=== PATIENT | male | born 1955 | race Caucasian/White ===

== ENCOUNTER → 2018-06-17 07:38 | Outpatient (CLI) | payer MEDICARE, SELFPAY ==
[2018-06-17 10:55] LABS: AST(SGOT) 25 U/L (15-37); Alanine Aminotransfer ALT/SGPT 35 U/L (16-61); Albumin, Serum 3.7 g/dL (3.2-5.0); Alkaline Phosphatase 79 U/L (45-117); Bilirubin, Direct 0.12 mg/dL (0.00-0.30); Cholesterol 150 mg/dL (200); Globulin 3.1 g/dL (2.2-4.2); High Density Lipoprotein 46 mg/dL; Protein, Total 6.8 g/dL (6.4-8.2); Triglycerides 123 mg/dL; Very Low Density Lipoprotein 25 mg/dL (5-40)
== END ==
PROVIDERS: Family Provider Family Medicine; PCP Family Medicine; Visit Provider Internal Medicine Cardiovascular Disease
DX: I25.10 Atherosclerotic heart disease of native coronary artery without angina pectoris (principal); E78.00 Pure hypercholesterolemia, unspecified
CPT/HCPCS: 36415; 80061; 80076

== ENCOUNTER → 2018-08-30 17:20 | Outpatient (CLI) | payer MEDICARE, SELFPAY ==
--- NOTE | 2018-08-30 | FLU_PTH ---
PATIENT: CECELIA BENZ LOC: [facility] U#:[id number] AGE/SX: 70/M ROOM: RE08/30/[address]: Dr. Ze Saab MD : 1955 BED: DIS: SPEC #: [id number] RECD: 08/30/18 15:00 STATUS: NOE BERNABE #: [id number] LETA: 08/30/18 00:[address]: Ze Saab DEPT: CYTOLOGY RECD BY: Ashley Hinkle ENTERED: 08/31/18 08:39 SP TYPE: Fluid OTHR DR: Dr. Talib Ferrara, DO Tissues: Urine Procedures: Pap Stain (control) Special Stain Group II Cytospin Fluid HEADER OPERATION: Not noted PRE-OP DIAGNOSIS: Bladder cancer TISSUE SUBMITTED: Urine for cytology DIAGNOSIS CYTOLOGY Urine for cytology (cytospin): Negative for malignant cells. HOWARD:marsha 09/01/18 COMMENT Please make reference to previous specimen ([id number]) bladder tumor, TUR with diagnosis of focally invasive urothelial carcinoma, ([id number]) urinary bladder tumor, TUR with diagnosis of mild reactive urothelial change, ([id number]) urine for cytology with diagnosis of a few atypical urothelial cells noted in the background of acute inflammation and bloody specimen, and ([id number]) urine for cytology with diagnosis of rare atypical urothelial cells present. CYTOLOGY STUDY Slides are reviewed. CYTOLOGY GROSS Received is 40 ml of slightly cloudy dark catie fluid labeled with the patient's name and and designated per the requisition as urine. Submitted for cytology preparation. /LONNIE:lencho 08/31/18 TC:5 CPT: 74598
[2018-08-30 17:39] LABS: Cytology, Body Fluid / CSF SEE PATHOLOGY REPORT
== END ==
PROVIDERS: Family Provider Family Medicine; PCP Family Medicine; Referring Provider Urology; Visit Provider Urology
DX: C67.9 Malignant neoplasm of bladder, unspecified (principal)
CPT/HCPCS: 88108; 88305; 88313

== ENCOUNTER 2018-10-27 09:00 | Outpatient (RCR) | payer MEDICARE, SELFPAY ==
--- NOTE | 2018-09-28 13:44 | HP.OTEVAL_ITS ---
Patient's Visit Information CECELIA BENZ is a 63 year old M, referred to Occupational Therapy by Davis Kinney MD, with a diagnosis of Trigger Finger, L hand. Date of Evaluation: 09/28/18 Occupational Therapist: Isabella Parr, AKUA/Annie, CHT - Subjective Subjective: pt. arrives after trigger finger release that occured 3 wks ago this coming Wednesday. Pt. reports that he had the splint on for 1 wk. to help with the healing of the finger to limit opening and closing of hand. Pt. reports that this is the 5th trigger finger (some of the trigger fingers occured on the R hand). - Pain L hand 0 Pain Intensity Range: 0, 1, 2, 3, 4, 5, 6, 7, 8, 9 - Objective Objective/Observation: patient has a wound on the volar surface of the hand, 3rd digit on L hand is swollen - ROM MP: L 2 0/74, 3 0/70, 4 0/73, 5 0/90 PIP: L 0/100, 0/98, 0/100, 0/105 DIP: L 0/80, 0/75,0/79, 0/95 ROM Comments: R hand. MP 5 0/80, 4 0/70, 3 0/75, 2 0/65. PIP 0/100, 0/95, 0/100, 0/100. 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 by completing strengthening exercises and stretches in order to complete BADL?s and IADL?s. Patient will improve lateral and tripod grasps by 5 lbs. by completing strengthening and stretching exercises in order to complete BADL?s and IADL?s. Goal:: Patient will increased ROM in L hand and demo full composite fist by completing strengthening and stretching exercises in order to complete BADL?s and IADL?s. Goal:: Patient will have decreased swelling and report overall decrease in pain of <5 following repetive movement activities in order to complete BADL?s and IADL?s. Goal:: patient will demo decrease in scar tissue following implementation of scar management techniques in order to increase I with BADL's and IADL's and demo full composite fist. Goal:: Patient will demo understanding of joint protection and ECM recommendations for increase I with BADL?s and IADL?s. Goal:: Patient will report understanding of wound care protocols for increased healing of L hand. - Rehabilitation General Assessment: Patient presents after having trigger finger release sx on L hand. Pt. to be treated for digits 2,3, and 4 post sx. Patient also presents with healing wound on the volar aspect of the hand. Patient demonstrating decre ased strength, ROM, increased pain, scar tissue, and decreased ability to complete BADL's and IADL's. Patient will benefit from therapy 2x/wk for 4 wks. Rehabilitation Potential: Good - Anticipated Interventions Anticipated Interventions: A/AAROM/PROM, Strengthening, Triggerpoint Release, Modalities, Joint Protection/Energy Conservation, Ergonomic Education, ADL Training, Home Program - Visit Plan Frequency: 2x /Week Duration: 4 Weeks TEXT: Thank you for the opportunity to evaluate your patient. For Medicare and Medicare HMO plans, please review the plan of care and approve it. It will need to be FAXED BACK to us at [phone] for Medicare purposes. Please let me know if there are questions or concerns regarding this plan of care. Physician Signature: Date:
--- NOTE | 2018-10-27 15:01 | HP.OTDCSUM_ITS ---
HP - OT D/C Summary It has been my pleasure to treat CECELIA BENZ under orders from Davis Kinney MD, for the diagnosis of Trigger Finger, L hand for a total of 8 visit(s). Please see the following information for a summary of their discharge status. - Objective Objective/Function: ROM. MP 0/81. PIP 0/90. 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 by completing strengthening exercises and stretches in order to complete BADL?s and IADL?s. Patient will improve lateral and tripod grasps by 5 lbs. by completing strengthening and stretching exercises in order to complete BADL?s and IADL?s. Goal:: Patient will increased ROM in L hand and demo full composite fist by completing strengthening and stretching exercises in order to complete BADL?s and IADL?s. Goal:: Patient will have decreased swelling and report overall decrease in pain of <5 following repetive movement activities in order to complete BADL?s and IADL?s. Goal:: patient will demo decrease in scar tissue following implementation of scar management techniques in order to increase I with BADL's and IADL's and demo full composite fist. Goal:: Patient will demo understanding of joint protection and ECM recommendations for increase I with BADL?s and IADL?s. Goal:: Patient will report understanding of wound care protocols for increased healing of L hand. - Plan Plan: cont POC - D/C Information Discharge Comments: patient made progress with ROM, strength, decreased pain and scar tissue, and increased I with BADL's and IADL's. OT noted that pt. wound healed. pt. reports no further concerns at this time. pt. d/c with a HEP. If there are questions or concerns regarding this patient's occupational therapy, please fell free to call me at [phone]. Thank you for the refe rral of this patient. Sincerely, Isabella Parr, OTR/L, CHT
== END 2018-10-27 19:00 | disposition home or self-care (01) ==
LOC: OT 09:00
PROVIDERS: Family Provider Family Medicine; PCP Family Medicine; Referring Provider Specialist; Visit Provider Specialist
DX: M65.332 Trigger finger, left middle finger (principal)
CPT/HCPCS: 97035; 97110; 97140; 97166; 97530; 97760; G8987; G8988

== ENCOUNTER → 2018-12-08 09:19 | Outpatient (CLI) | payer MEDICARE, SELFPAY ==
[2018-12-08 12:16] LABS: Absolute Lymphocyte Count 1.03 X10^3/ul (0.83-4.51); Absolute Neutrophil Count 3.7 X10^3/uL (2.0-7.7); Basophil# 0.02 X10^3/uL; Basophil% 0.4 % (0-1); Eosinophils% 3.8 % (0-5); Hematocrit 43.6 % (40-54); Hemoglobin 14.8 g/dl (13.0-16.5); Lymphocyte # 1.03 X10^3/ul (4.0); Lymphocyte % 19.5 % (19-41); Mean Corp Hgb Conc 33.9 g/gl (32-36); Mean Corpuscular Hgb 30.3 pg (27.0-32.0); Mean Corpuscular Volume 89.3 fL (80-94); Mean Platelet Vol. 9.3 fl (6.2-12.0); Monocyte# 0.32 X10^3/uL; Monocyte% 6.1 % (0-10); Neutrophil # 3.69 X10^3/uL (2.7-7.7); Neutrophil % 69.8 % (47-70); POSITIVE COUNT NO; POSITIVE DIFFERENTIAL NO; POSITIVE MORPHOLOGY NO; Platelet Count 152 K/mm3 (150-450); RBC Distribution Width CV 13.3 % (11.6-14.6); RBC Distribution Width SD 42.8 fl (35.1-43.9); Red Blood Count 4.88 M/mm3 (4.6-6.2); White Blood Count 5.3 K/mm3 (4.4-11.0)
[2018-12-08 12:29] LABS: Microalbumin,Random Urine 11.1 mg/L (NO RANGE EST.); Microalbumin:Creatinine Ratio 12.6 mg/g CRE (<30 mg/g CRE)
[2018-12-08 12:42] LABS: Anion Gap 7 (5-15); BUN 20 mg/dL (7-18); BUN/Creat Ratio 14.4 RATIO (10-20); Calcium,Total 8.9 mg/dL (8.5-10.1); Chloride 102 mmol/L (98-107); Creatinine, Serum 1.39 mg/dL (0.70-1.30); EST Glomerular Filtration Rate 54 mL/min (>60); Est Glom Filt Rate - Afr Amer 66 mL/min (>60); Glucose 360 mg/dL (74-106); Potassium 4.7 mmol/L (3.5-5.1); Sodium Level 134 mmol/L (136-145)
== END ==
PROVIDERS: Family Provider Family Medicine; PCP Family Medicine; Visit Provider Family Medicine
DX: E11.29 Type 2 diabetes mellitus with other diabetic kidney complication (principal); R80.9 Proteinuria, unspecified; I25.10 Atherosclerotic heart disease of native coronary artery without angina pectoris; I10 Essential (primary) hypertension
CPT/HCPCS: 36415; 80048; 82043; 82570; 83036; 85025

== ENCOUNTER → 2019-01-06 08:03 | Outpatient (CLI) | payer MEDICARE, SELFPAY ==
[2018-12-29 09:43] VITALS: BMI 31.7
[2019-01-06 10:52] LABS: AST(SGOT) 34 U/L (15-37); Alanine Aminotransfer ALT/SGPT 43 U/L (16-61); Albumin, Serum 3.9 g/dL (3.2-5.0); Alkaline Phosphatase 90 U/L (45-117); Bilirubin, Direct 0.18 mg/dL (0.00-0.30); Cholesterol 175 mg/dL (200); Globulin 3.1 g/dL (2.2-4.2); High Density Lipoprotein 43 mg/dL; Triglycerides 183 mg/dL; Very Low Density Lipoprotein 37 mg/dL (5-40)
== END ==
PROVIDERS: Family Provider Family Medicine; PCP Family Medicine; Referring Provider Internal Medicine Cardiovascular Disease; Visit Provider Internal Medicine Cardiovascular Disease
DX: I25.10 Atherosclerotic heart disease of native coronary artery without angina pectoris (principal); E78.00 Pure hypercholesterolemia, unspecified
CPT/HCPCS: 36415; 80061; 80076

== ENCOUNTER → 2019-04-10 08:00 | Outpatient (CLI) | payer MEDICARE, SELFPAY ==
[2018-12-29 09:43] VITALS: BMI 31.7
--- NOTE | 2019-04-10 08:00 | BLA_PTH ---
PATIENT: CECELIA BENZ LOC: [facility] U#:[id number] AGE/SX: 70/M ROOM: RE04/10/[address]: Dr. Ze Saab MD : 1955 BED: DIS: SPEC #: [id number] RECD: 04/10/19 16:54 STATUS: NOE BERNABE #: [id number] LETA: 04/10/19 08:[address]: Ze Saab DEPT: SURGICAL PATHOLOGY RECD BY: Mike Toledo ENTERED: 04/11/19 08:41 SP TYPE: BLADDER BX OTHR DR: Dr. Talib Ferrara DO Tissues: Urinary bladder, NOS Procedures: Special Stain Group I Surgery Specimen Level IV GMS Stain (control) HEADER OPERATION: Bladder biopsy PRE-OP DIAGNOSIS: Hematuria, bladder lesion TISSUE SUBMITTED: Bladder biopsy MICROSCOPIC DIAGNOSIS Urinary bladder, biopsy: Fibrous tissue with associated polarizable crystalline debris, acute and chronic inflammation and associated benign histiocytic reaction. No evidence of malignancy. See comment. AM:marsha 04/12/19 COMMENT GMS stain with matched control is negative for fungal organisms. MICROSCOPIC DESCRIPTION Slides are reviewed. GROSS DESCRIPTION Received in fixative is one container labeled with the patient's name and designated bladder biopsy. The specimen consists of two irregular fragments of light lynn soft tissue that in aggregate measure 0.2 x 0.1 x 0.1 cm. The specimen is totally submitted in one cassette. / SJ:marsha 04/11/19 TC:2 CPT: 98019, 60235
== END ==
PROVIDERS: Family Provider Family Medicine; PCP Family Medicine; Referring Provider Urology; Visit Provider Urology
DX: R31.9 Hematuria, unspecified (principal); N32.9 Bladder disorder, unspecified
CPT/HCPCS: 88305; 88312

== ENCOUNTER 2019-04-26 09:34 | Emergency (ER) | payer MEDICARE, SELFPAY ==
[2018-12-29 09:43] VITALS: BMI 31.7
[2019-04-26 09:35] VITALS: BP 147/77; PULSE 73; RESP 16; TEMP 36.4; O2SAT 96; BMI 30.9
--- NOTE | 2019-04-26 09:47 | ED.VISSUMM ---
- ER Visit Summary Date of Service: 04/26/19 Chief Complaint: Left hand laceration History of Present Illness: The patient is a 64 M who presents with a laceration to his left hand that occurred today. Patient states he slipped in the shower and attempted to grab the handle of the shower door. Patient cut his hand on the shower door handle. Patient denies any pain. Patient denies any paresthesias or weakness. Patient states his last tetanus was within 5 years. Patient denies any other injuries. Patient denies any head injury or loss of consciousness. Physical Examination: Vital signs are stable. Patient is afebrile. Patient is in no acute distress. Skin is warm and dry. There is a 3 cm curvilinear laceration over the palmar aspect of the proximal phalanx of the left fifth finger and over the fifth MCP joint area. There is moderate gapping of the wound margins. There are no foreign bodies noted. There are no tendon lacerations visualized. Strength is 5/5 in flexion of the MP, PIP, and DIP joints of the left fifth finger. Capillary refill is less than 2 seconds in all digits. Sensation was intact to light touch in all digits. Emergency Department Course and Treatment: The wound was cleaned and irrigated with copious amounts normal saline. The wound was anesthetized with 1% plain lidocaine locally. Wound was closed with 5 simple interrupted #4-0 nylon sutures under sterile technique. Bacitracin dressing was applied. Patient was instructed to keep the wound clean and dry. Patient was instructed to follow-up with his primary care physician in 7 days for wound recheck and suture removal. Patient understood and was agreeable with the plan. All questions were answered. Disposition: Discharge home Impression: Left hand laceration This note was generated with Meridian dictation software. It may contain incorrect words, spelling, and punctuation that were not noted in review of the chart prior to signing ED Disposition - Plan for ED Patient: Disposition: Home or Assisted Living Diagnosis: Laceration of left hand Instructions: ED Laceration Hand Referrals: Talib Ferrara DO [Primary Care Provider] - 7 Days for suture removal
[2019-04-26] MEDS: BACITRACIN 15 GM Tube 1 APPLIC TOPICAL (10:18)
--- NOTE | 2019-04-26 11:16 | ED.RN ---
DISCHARGE INSTRUCTIONS GIVEN TO AND REVIEWED WITH PATIENT, PATIENT DENIES QUESTIONS OR CONCERNS AND VOICES UNDERSTANDING OF DISCHARGE INSTRUCTIONS. PT AMBULATES OUT OF ROOM WITHOUT DIFFICULTY.
== END 2019-04-26 11:17 | disposition home or self-care (01) ==
PROVIDERS: Emergency Provider Emergency Medicine; Family Provider Family Medicine; PCP Family Medicine
DX: S61.412A Laceration without foreign body of left hand, initial encounter (principal); I25.10 Atherosclerotic heart disease of native coronary artery without angina pectoris; E11.9 Type 2 diabetes mellitus without complications; W26.9XXA Contact with unspecified sharp object(s), initial encounter; Y93.E1 Activity, personal bathing and showering; Y92.002 Bathroom of unspecified non-institutional (private) residence as the place of occurrence of the external cause; Y99.8 Other external cause status
CPT/HCPCS: 12002; 99284

== ENCOUNTER → 2019-07-26 | Outpatient (CLI) | payer MEDICARE, SELFPAY ==
[2019-07-21 10:54] VITALS: BMI 31.4
--- NOTE | 2019-07-26 12:42 | STRESSREP ---
Stress Test Report Exercise myocardial perfusion stress test. 64-year-old man with a history of coronary artery disease. Medications, Plavix, Amaryl, atorvastatin. Stress protocol: Resting EKG demonstrates normal sinus rhythm with a rate of 70 bpm normal intervals are noted. The patient exercised according to regular Polo protocol for total duration of 8 minutes. The maximum heart rate attained was 114 bpm which was 74% maximum predicted heart rate the maximum workload was 10.1 metabolic equivalents. Patient maintained sinus rhythm throughout the recording. At rest there were no ST or T wave changes no suggest ischemia peak exercise upsloping ST changes only were noted with no meet the criteria for ischemia. The resting blood pressures 150/84 with a peak blood pressure of 168/64 mmHg. No clinical angina was noted. Myocardial perfusion protocol. 14.6 mCi of technetium 99m sestamibi was injected at rest. The patient exercised according to regular Polo protocol for 8 minutes. At peak exercise 44.3 mCi of technetium 99m sestamibi was injected stress images were obtained stress and rest images were reconstructed and compared in the short axis vertical long horizontal long axis. Gated images were also obtained Perfusion SPECT analysis: Review of the stress images demonstrate a normal cardiac silhouette size. There is a small to medium-sized defect noted in the mid inferior wall on the stress images with improvement on the resting images. There is some diaphragmatic attenuation noted however ischemia is suggested. No previous infarct is noted. Gated SPECT analysis: The gated ejection fraction is noted to be 72%. Conclusion: Exercise myocardial perfusion stress test with evidence of mid inferior ischemia. Preserved ejection fraction
== END | disposition home or self-care (01) ==
PROVIDERS: Family Provider Family Medicine; PCP Family Medicine; Referring Provider Nurse Practitioner Family; Visit Provider Nurse Practitioner Family
DX: I25.10 Atherosclerotic heart disease of native coronary artery without angina pectoris (principal); R07.9 Chest pain, unspecified; E78.00 Pure hypercholesterolemia, unspecified; I10 Essential (primary) hypertension; Z95.5 Presence of coronary angioplasty implant and graft
CPT/HCPCS: 78452; 93017; A9500; A4216

== ENCOUNTER 2019-08-10 06:36 | Day surgery (SDC) | payer MEDICARE, SELFPAY ==
[2019-07-21 10:54] VITALS: BMI 31.4
--- NOTE | 2019-08-01 11:45 | RAD_ITS ---
STUDY: X-RAY CHEST REASON FOR EXAM: Male, 64 years old. Chest pain TECHNIQUE: Frontal and lateral views of the chest COMPARISON: 04/09/2016. FINDINGS: The lungs are clear. There are no pleural effusions. There is no pneumothorax. The heart is normal in size. The visualized osseous structures are within normal limits. RAD/Chest PA and Lateral IMPRESSION: No acute thoracic pathology. Electronically Signed: Davis Carter, at 19:04 EDT Tel , Service support ,
[2019-08-02 09:34] LABS: Absolute Lymphocyte Count 1.17 X10^3/uL (0.83-4.51); Absolute Neutrophil Count 3.6 X10^3/uL (2.0-7.7); Basophil# 0.04 X10^3/uL; Basophil% 0.7 % (0-1); Eosinophil# 0.25 X10^3/uL; Eosinophils% 4.5 % (0-5); Hematocrit 41.5 % (40-54); Hemoglobin 14.4 g/dL (13.0-16.5); Lymphocyte # 1.17 X10^3/ul (4.0); Lymphocyte % 21.2 % (19-41); Mean Corp Hgb Conc 34.7 g/dL (32-36); Mean Corpuscular Hgb 31.4 pg (27.0-32.0); Mean Corpuscular Volume 90.6 fL (80-94); Mean Platelet Vol. 8.8 fl (6.2-12.0); Monocyte# 0.38 X10^3/uL; Monocyte% 6.9 % (0-10); NRBC Flagged by Analyzer 0 % (0-5); Neutrophil # 3.63 X10^3/uL (2.7-7.7); Platelet Count 140 K/mm3 (150-450); RBC Distribution Width CV 12.9 % (11.6-14.6); RBC Distribution Width SD 41.9 fl (35.1-43.9); Red Blood Count 4.58 M/mm3 (4.6-6.2); White Blood Count 5.5 K/mm3 (4.4-11.0)
[2019-08-02 10:15] LABS: AST(SGOT) 31 U/L (15-37); Alanine Aminotransfer ALT/SGPT 36 U/L (16-61); Albumin, Serum 3.7 g/dL (3.2-5.0); Alkaline Phosphatase 67 U/L (45-117); Anion Gap 6 (5-15); BUN 14 mg/dL (7-18); BUN/Creat Ratio 9.8 RATIO (10-20); Bilirubin, Direct 0.12 mg/dL (0.00-0.30); Calcium,Total 9.2 mg/dL (8.5-10.1); Chloride 108 mmol/L (98-107); Cholesterol 172 mg/dL (200); Creatinine, Serum 1.43 mg/dL (0.70-1.30); EST Glomerular Filtration Rate 53 mL/min (>60); Est Glom Filt Rate - Afr Amer 64 mL/min (>60); Glucose 155 mg/dL (74-106); High Density Lipoprotein 45 mg/dL; Potassium 4.1 mmol/L (3.5-5.1); Protein, Total 6.7 g/dL (6.4-8.2); Sodium Level 141 mmol/L (136-145); Triglycerides 149 mg/dL; Very Low Density Lipoprotein 30 mg/dL (5-40)
[2019-08-10 07:01] VITALS: BMI 30.2
--- NOTE | 2019-08-10 08:37 | CL.D_ITS ---
Patient Name: CECELIA BENZ Study Date: 08/10/2019 Performing: Mark Duque MD Ht: 71 inches 180.34 cm : 1955 Wt: 217 lbs 98.43 kg Age: 64 Gender: male BSA: 2.18 Amended PROCEDURE(S) PERFORMED GZ21-TVD/COR/LV CLINICAL PROFILE AND INDICATIONS Indications: Suspected CAD Heart Failure: None Stress/Imaging Date: 07/26/2019Stress Test with SPECT MPI: Positive Low Risk CAD Presentations: No Sxs, no angina. CONCLUSIONS Diffuse triple-vessel disease involving the proximal LAD, distal LAD with a long small vessel stenosi s, mid to distal circumflex artery and a totally occluded right coronary artery with [id number] co llaterals. His ejection fraction is preserved. It does not appear that the great targets for bypass surgery. RECOMMENDATIONS Medical therapy DESCRIPTION OF PROCEDURE The patient arrived to the procedure lab. The risks and benefits of the procedure as well as a full d escription of our services here and current unavailability of surgical backup were fully explained to the patient and/or their significant other prior to the catheterization. The Timeout was completed, verifying the correct patient and procedure. The patient's procedural site was prepped and draped in the usual fashion. Local anesthetic was given subcutaneously to right radial region with Lidocaine 2% . Using a modified Seldinger technique, arterial access was obtained via the right radial artery, a 6 Fr sheath was inserted. Right Coronary Artery selective angiography was then performed in multiple v iews using a 5 Fr. 4.0 [place] catheter. Left Coronary Artery selective angiography was performed in mu ltiple views using a 5 Fr. 4.0 [place] catheter. Left Ventriculography was performed in MUNOZ projection using a 5 Fr. Pigtail catheter. LV to AO pullback pressures were then recorded.The arterial sheath was pulled and a TR Band was applied for hemostasis CORONARY ANGIOGRAPHY DOMINANCE: Right Dominant LEFT HEART ASSESSMENT Left Ventricular Ejection Fraction: by LV Gram 60 % Normal LV wall motion Normal Left Ventricular systolic function LEFT MAIN: Angiographically normal LEFT ANTERIOR DESCENDING ARTERY: PROX LAD: Moderate luminal irregularities up to 50% MID LAD: Mild luminal irregularities less than 30% DISTAL LAD: diffuse 80 % Stenosis CIRCUMFLEX ARTERY: DISTAL CIRC: Diffusely diseased up to 80 % OM 1: Proximal - 80 % Stenosis OM 2: Proximal - Mild luminal irregularities less than 30% OM 3: Proximal - Diffusely diseased up to 50 % LT PDA: Left PDA: Proximal - Diffuse diseased RIGHT CORONARY ARTERY: PROX RCA: is occluded COLLATERAL FLOW: Collateral flow from Left to Right COMPLICATIONS No Complications PROCEDURE MEDICATIONS Versed 1 mg IV Fentanyl 50 mcg IV Versed 1 mg IV Oxygen: 2 L/min via nasal cannula Heparin given IA 08/10/2019 08:09:17 Verapamil 2.5mg, Ntg 100mcgs, 2000 units of Heparin given IA 08/10/2019 08:09:17 SUMMARY OF HEMODYNAMIC DATA Time AIR REST ECG 07:07:42 AO 97/61 (77) SA 08:11:21 LV 112/1, 6 08:18:04 LV 122/0, 5 08:18:11 LV 128/-11, 10 08:19:01 LV 129/-12, 9 08:19:08 LVp 130/-11, 9 08:19:14 AOp 131/63 (92) 08:19:19 08:35:27 Signed By Mark Duque MD On 08/10/2019 08:36:07 Mark Duque MD
== END 2019-08-10 10:31 | disposition home or self-care (01) ==
LOC: CLSP 06:37
PROVIDERS: Family Provider Family Medicine; PCP Family Medicine; Referring Provider Internal Medicine Cardiovascular Disease; Visit Provider Internal Medicine Cardiovascular Disease
DX: I25.10 Atherosclerotic heart disease of native coronary artery without angina pectoris (principal); I10 Essential (primary) hypertension; E78.00 Pure hypercholesterolemia, unspecified; E11.9 Type 2 diabetes mellitus without complications; Z79.899 Other long term (current) drug therapy; Z95.5 Presence of coronary angioplasty implant and graft; Z79.02 Long term (current) use of antithrombotics/antiplatelets; Z79.82 Long term (current) use of aspirin; Z79.4 Long term (current) use of insulin; Z87.891 Personal history of nicotine dependence
CPT/HCPCS: 36415; 71046; 80048; 80061; 80076; 85025; 93458; 99152; 99153; J7040; Q9967; C1769; C1894

== ENCOUNTER → 2019-11-27 08:59 | Outpatient (CLI) | payer MEDICARE, SELFPAY ==
[2019-11-27 10:16] LABS: Erythrocyte Sedimentation Rate 5 mm/hr (0-20)
[2019-11-27 10:19] LABS: Absolute Lymphocyte Count 1.32 X10^3/uL (0.83-4.51); Absolute Neutrophil Count 3.7 X10^3/uL (2.0-7.7); Basophil# 0.05 X10^3/uL; Basophil% 0.9 % (0-1); Eosinophil# 0.15 X10^3/uL; Eosinophils% 2.7 % (0-5); Hemoglobin 14.8 g/dL (13.0-16.5); Lymphocyte # 1.32 X10^3/ul (4.0); Lymphocyte % 23.6 % (19-41); Mean Corp Hgb Conc 35.2 g/dL (32-36); Mean Corpuscular Hgb 30.8 pg (27.0-32.0); Mean Corpuscular Volume 87.5 fL (80-94); Mean Platelet Vol. 8.6 fl (6.2-12.0); Monocyte# 0.32 X10^3/uL; Monocyte% 5.7 % (0-10); NRBC Flagged by Analyzer 0 % (0-5); Neutrophil % 66.2 % (47-70); Platelet Count 165 K/mm3 (150-450); RBC Distribution Width CV 12.9 % (11.6-14.6); RBC Distribution Width SD 40.9 fl (35.1-43.9); White Blood Count 5.6 K/mm3 (4.4-11.0)
[2019-11-27 10:36] LABS: Microalbumin,Random Urine 27.1 mg/L (NO RANGE EST.); Microalbumin:Creatinine Ratio 11.9 mg/g CRE (<30 mg/g CRE)
[2019-11-27 10:39] LABS: ALB/GLOB Ratio 1.2 RATIO (0.9-2.4); AST(SGOT) 25 U/L (15-37); Alanine Aminotransfer ALT/SGPT 39 U/L (16-61); Albumin, Serum 3.8 g/dL (3.2-5.0); Alkaline Phosphatase 67 U/L (45-117); Anion Gap 6 (5-15); BUN 20 mg/dL (7-18); BUN/Creat Ratio 14.7 RATIO (10-20); CRP < 2.90 mg/L (0.0-3.0); Calcium,Total 8.8 mg/dL (8.5-10.1); Chloride 105 mmol/L (98-107); Cholesterol 171 mg/dL (200); Creatinine, Serum 1.36 mg/dL (0.70-1.30); EST Glomerular Filtration Rate 56 mL/min (>60); Est Glom Filt Rate - Afr Amer 67 mL/min (>60); Globulin 3.1 g/dL (2.2-4.2); Glucose 179 mg/dL (74-106); High Density Lipoprotein 42 mg/dL; Potassium 4.4 mmol/L (3.5-5.1); Protein, Total 6.9 g/dL (6.4-8.2); Sodium Level 138 mmol/L (136-145); Triglycerides 220 mg/dL; Very Low Density Lipoprotein 44 mg/dL (5-40)
[2019-11-27 11:02] LABS: Hemoglobin A1c 7.9 % (4.2-6.3)
== END ==
PROVIDERS: Family Provider Family Medicine; PCP Family Medicine; Referring Provider Orthopaedic Surgery; Visit Provider Orthopaedic Surgery
DX: E11.22 Type 2 diabetes mellitus with diabetic chronic kidney disease (principal); I12.9 Hypertensive chronic kidney disease with stage 1 through stage 4 chronic kidney disease, or unspecified chronic kidney disease; N18.3 Chronic kidney disease, stage 3 (moderate); M16.11 Unilateral primary osteoarthritis, right hip; I25.10 Atherosclerotic heart disease of native coronary artery without angina pectoris; E11.29 Type 2 diabetes mellitus with other diabetic kidney complication
CPT/HCPCS: 36415; 80053; 80061; 82043; 82570; 83036; 85025; 85652; 86140

== ENCOUNTER → 2020-01-02 | Outpatient (CLI) | payer MEDICARE, SELFPAY ==
[2019-12-28 08:55] VITALS: BMI 30.4
--- NOTE | 2020-01-02 | TOBX_PTH ---
PATIENT: [facility]EL[id number] AGE/SX: 64/M ROOM: RE01/02/[address]: Dr. Zach Waters DDS : 1955 BED: DIS: 01/02/2020 SPEC #: [id number] RECD: 01/02/20 10:16 STATUS: NOE REEdinson #: [id number] LETA: 01/02/20 00:[address]: Zach Waters DEPT: SURGICAL PATHOLOGY RECD BY: Mike Toledo ENTERED: 01/02/20 13:09 SP TYPE: TONGUE BX OTHR DR: Dr. Talib Ferrara, DO Tissues: Tongue, NOS Procedures: Special Stain Group I Surgery Specimen Level IV GMS Stain (control) HEADER OPERATION: Biopsy PRE-OP DIAGNOSIS: Lesion present one year TISSUE SUBMITTED: Left lateral tongue MICROSCOPIC DIAGNOSIS Left lateral tongue, biopsy: Papillomatous hyperplasia, minimally inflamed. Negative for fungal organisms. See comment. AM:marsha 01/03/20 COMMENT GMS stain with matched control supports the above diagnosis. MICROSCOPIC DESCRIPTION Slides are reviewed. GROSS DESCRIPTION Received in fixative is one container labeled with the patient's name and designated tongue. The specimen consists of two pieces of lynn mucosal tissue that in aggregate measure 1 x 0.5 x 0.2 cm. The entire specimen is submitted in one cassette. / SJ:marsha 01/02/20 TC:5 CPT: 67187, 75849
== END | disposition home or self-care (01) ==
LOC: LABSPEC 10:27
PROVIDERS: PCP Family Medicine; Referring Provider Dentist Oral and Maxillofacial Surgery; Visit Provider Dentist Oral and Maxillofacial Surgery
DX: L98.9 Disorder of the skin and subcutaneous tissue, unspecified (principal)
CPT/HCPCS: 88305; 88312

== ENCOUNTER → 2020-04-15 | Outpatient (CLI) | payer MEDICARE, SELFPAY ==
[2019-12-28 08:55] VITALS: BMI 30.4
--- NOTE | 2020-04-15 09:25 | CYSPIN_PTH ---
PATIENT: [facility]EN[id number] AGE/SX: 65/M ROOM: RE04/15/[address]: Dr. Ze Saab MD : 1955 BED: DIS: 04/15/2020 SPEC #: [id number] RECD: 04/16/20 09:17 STATUS: NOE REEdinson #: [id number] LETA: 04/15/20 09:[address]: Ze Saab DEPT: CYTOLOGY RECD BY: Mike Toledo ENTERED: 04/16/20 09:17 SP TYPE: CYSPIN FL OTHR DR: Dr. Talib Ferrara, DO Tissues: Urine Procedures: Pap Stain (control) Special Stain Group II Cytospin Fluid HEADER OPERATION: Not noted PRE-OP DIAGNOSIS: Malignant neoplasm of posterior wall of bladder TISSUE SUBMITTED: Urine for cytology DIAGNOSIS CYTOLOGY Urine for cytology (cytospin): Atypical urothelial cells in clusters consistent with urothelial carcinoma. AM:marsha 04/17/20 COMMENT Case has been reviewed in consultation with Dr. Her who concurs with the above diagnosis. IDC:SJ CYTOLOGY STUDY Slides are reviewed. CYTOLOGY GROSS Received is 60 ml of clear yellow fluid labeled with the patient's name and and designated per the requisition as urine. Submitted for cytology preparation. / marsha 04/16/20 TC:0 CPT: 92616
[2020-04-15 16:29] LABS: Cytology, Body Fluid / CSF SEE PATHOLOGY REPORT
== END | disposition home or self-care (01) ==
LOC: LABSPEC 16:02
PROVIDERS: PCP Family Medicine; Referring Provider Urology; Visit Provider Urology
DX: C67.4 Malignant neoplasm of posterior wall of bladder (principal)
CPT/HCPCS: 88108; 88313

== ENCOUNTER 2020-04-24 09:55 | Day surgery (SDC) | payer MEDICARE, SELFPAY ==
[2019-12-28 08:55] VITALS: BMI 30.4
[2020-04-24 10:12] VITALS: BP 126/72; PULSE 67; RESP 16; TEMP 35.9; O2SAT 100; BMI 31.4
[2020-04-24] MEDS: Lactated Ringers 1,000 ML 100 ML IV ×2 (10:36→13:56)
[2020-04-24 10:46] LABS: Bedside Glucose 170 mg/dL (70-110)
--- NOTE | 2020-04-24 12:15 | BLA_PTH ---
PATIENT: CECELIA BENZ LOC: [facility] [place] U#:[id number] AGE/SX: 65/M ROOM: RE04/24/[address]: Dr. Ze Saab MD : 1955 BED: DIS: 04/24/2020 SPEC #: [id number] RECD: 04/24/20 14:33 STATUS: NOE REEdinson #: [id number] LETA: 04/24/20 12:[address]: Ze Saab DEPT: SURGICAL PATHOLOGY RECD BY: Mike Toledo ENTERED: 04/25/20 09:37 SP TYPE: BLADDER BX OTHR DR: Dr. Talib Ferrara, DO Tissues: Urinary bladder, NOS Procedures: Surgery Specimen Level IV HEADER OPERATION: Cysto, bladder biopsy, retrograde, fulguration PRE-OP DIAGNOSIS: Bladder cancer TISSUE SUBMITTED: Bladder biopsy MICROSCOPIC DIAGNOSIS Bladder, biopsy: Fragments of urothelial mucosa mild epithelial hyperplasia and atypia. Focal acute and chronic inflammation. Negative for malignancy. See comment. HOWARD:marsha 04/26/20 COMMENT Correlation with clinical, cystoscopic findings and appropriate follow up are necessary. Please make reference to previous specimens ([id number]) bladder tumor, TUR and ([id number]) urinary bladder tumor, TUR with diagnosis of urothelial carcinoma and ([id number]) urine for cytology with diagnosis of atypical urothelial cells in clusters consistent with urothelial carcinoma. Case has been reviewed in consultation with Dr. Rivera who concurs with the above diagnosis. IDC:AM MICROSCOPIC DESCRIPTION Slides are reviewed. GROSS DESCRIPTION Received in fixative is one container labeled with the patient's name and designated bladder biopsy. The specimen consists of multiple irregular fragments of light lynn soft tissue that in aggregate measure 0.3 x 0.2 x 0.1 cm. The specimen is totally submitted in one cassette. / HOWARD:marsha 04/25/20 TC:2 CPT: 66956
--- NOTE | 2020-04-24 12:49 | PCM.HP.STD ---
Problem List (1) Bladder cancer Status: Acute Qualifiers: Bladder location: overlapping sites Qualified Code(s): C67.8 - Malignant neoplasm of overlapping sites of bladder History of Present Illness Date of Admission: 04/24/20 Chief Complaint: Bladder cancer The patient is a 65 year old male with a history of bladder cancer multiple sites in the bladder in the past he underwent resection and BCG 3 treatment. Recent cystoscopy was normal except for some reddish lesions in the back of the bladder cytology came back abnormally positive so today we can proceed with a cystoscopy bladder biopsy and fulguration of these reddish lesions. Of note these lesions have been biopsied before and were negative but given the positive cytology renal biopsy and began get deeper biopsies. Also plan to perform retrograde pyelograms to evaluate both the left and right kidney to evaluate for any abnormalities. Has had no gross hematuria or other symptoms this was all discovered on just routine surveillance cystoscopy. Past Medical History Past Medical History (Chronic Problems): Chronic Problems (Last Reviewed 12/28/19 @ 09:[address] Mark Duque MD) Atherosclerotic heart disease of [place] coronary artery without angina pectoris (Chronic) Stenosis of right carotid artery (Chronic) Right carotid endarterectomy with bovine patch angioplasty 11/23/2017 Essential (primary) hypertension (Chronic) Hyperlipidemia (Chronic) Medical History: Medical History (Last Reviewed 12/28/19 @ 09:[address] Mark Duque MD) Atherosclerotic heart disease of [place] coronary artery without angina pectoris (Chronic) I25.10 Stenosis of right carotid artery (Chronic) I65.21 Right carotid endarterectomy with bovine patch angioplasty 11/23/2017 Essential (primary) hypertension (Chronic) I10 Hyperlipidemia (Chronic) E78.5 Obesity E66.9 Type 2 diabetes mellitus E11.9 Bladder cancer C67.9 Allergies No Known Allergies Allergy (Verified 04/23/20 08:10) Home Medications: Ambulatory Orders Medication Instructions Recorded Clopidogrel Bisulfate [Plavix] 75 mg PO DAILY 11/07/14 Glimepiride [Amaryl] 4 mg PO DAILY 11/07/14 Sertraline HCl [Zoloft] 100 mg PO QDAY 11/19/17 multivitamin-ferrous 1 tab PO QAM 05/23/18 fumarate-folic acid 18 mg-400 mcg tablet pantoprazole 40 mg tablet,delayed 40 mg PO QHS 05/23/18 release sildenafil 50 mg tablet 50 mg PO QDAY PRN 05/23/18 metformin 500 mg tablet 1,000 mg PO BIDCM tab 12/29/18 fenofibrate nanocrystallized 145 145 mg PO QHS #90 tab 06/19/19 mg tablet ramipril 2.5 mg capsule 2.5 mg PO DAILY #90 cap 06/19/19 bupropion HCl 150 mg 24 hr tablet, 300 mg PO QAM tab 07/21/19 extended release cholecalciferol (vitamin D3) 50 5,000 unit PO DAILY 07/21/19 mcg (2,000 unit) capsule nitroglycerin 0.4 mg sublingual 0.4 mg SUBLINGUAL Q5-15M PRN #25 07/21/19 tablet tab Aspirin E.C. [Ecotrin] 325 mg PO DAILY@0800 04/23/20 Atorvastatin Calcium [Lipitor] 20 mg PO BID 04/23/20 Insulin Glargine,Hum.rec.anlog 20 unit SQ QHS 04/23/20 [Lantus Solostar] Previgen 1 cap PO DAILY 04/23/20 Ubidecarenone [Coq10] 200 mg PO DAILY 04/23/20 Vitamin E 100 unit PO DAILY 04/23/20 Ciprofloxacin [Cipro] 500 mg PO BID #6 tab 04/24/20 Hydrocodone/Acetaminophen [[place] 1 each PO Q4H PRN PRN 3 Days #10 04/24/20 5-325 Tablet] tablet Surgical History: Surgical History (Last Reviewed 12/28/19 @ 09:[address] Mark Duque MD) History of coronary artery stent placement (Resolved) Onset Date: 01/05/08 Z95.5 PCI-SEAMUS to mid RCA w/ 3.5 X 13 mm Tristar stent and POBA-OM1 05/30/2000; PCI-SEAMUS-RCA w/ 3.0 x 32 mm Taxus stent and distal LCX w/ 2.75 X 24 mm Taxus stent 01/05/08 History of bladder surgery Z98.890 resection of bladder tumor 2014, bladder surgery 2016 History of left heart catheterization Onset Date: 08/10/19 Z98.890 History of right-sided carotid endarterectomy Onset Date: 11/23/17 Z98.890 Surgical History: no surgical history Smoking Status: Former smoker Tobacco Use: Non-smoker Review of Systems Constitutional: Denies: Chills, Fever, Weight Change HEENT: Denies: Head Aches, Sinus Congestion, Sinus Drainage Cardiovascular: Denies: Chest Pain, Palpitations Respiratory: Denies: Cough, Shortness of breath at rest, Sputum production Gastrointestinal: Denies: Abdominal Pain, Nausea, Vomiting Genitourinary: Denies: Dysuria Musculoskeletal: Denies: Joint Pain, Joint Tenderness Skin: Denies: Rash, Wounds Neurological: Denies: Numbness, Tingling, Focal weakness Psychiatric: Denies: Anxiety, Depression, Homicidal Ideations, Suicidal Ideations Hematologic/ Lymphatic: Denies: Easy Bruising, Easy Bleeding VTE Information - Inpt Only VTE Present on Admission: No VTE Mechan Device Prophylaxis: SCD's Patient Problems: Active and Suspected Problems (Last Reviewed 12/28/19 @ 09:[address] Mark Duque MD) Bladder cancer (Acute) - Physical Exam Vitals/I&O's: Vital Signs Temp Pulse Resp BP Pulse Ox 96.6 F L 67 16 126/72 H 100 04/24/20 10:12 04/24/20 10:12 04/24/20 10:12 04/24/20 10:12 04/24/20 10:12 Oxygen Delivery Method Room Air Weight: 99.4 kg Body Mass Index (BMI) 31.4 Finger Stick Blood Glucose 339 General: Alert, Oriented x3, Cooperative HEENT: Atraumatic, PERRLA, EOMI, Normocephalic Neck: Supple, No JVD, Negative Carotid Bruits Lungs: Clear to auscultation, Normal air movement Cardiovascular: Regular rate, No murmurs Abdomen: Bowel Sounds Present, Soft, Non Tender Extremities: No edema, Capillary Refill Less than 3 Seconds Skin: No rashes, No breakdown Musculoskeletal: No Tenderness to Palpation of Joints or Extremities Neurological: Cranial nerves II-XII grossly intact Psych/Mental Status: Normal Affect, Appropriate Microbiology Past 72 Hours 04/23/20 12:20 Mucosa - Nasopharyngeal Coronavirus COVID-19 PCR - Final Laboratory Results 04/24/20 10:13: POC Glucose 170 H Current Medications Lactated Ringer's () 1,000 mls @ 100 mls/hr IV .Q10H KERA Last Admin: 04/24/20 10:36 Dose: 100 mls/hr Documented by: Assessment/Plan All Active Problems (Last Reviewed 12/28/19 @ 09:[address] Mark Duque MD) Bladder cancer (Acute) History of coronary artery stent placement (Resolved 01/05/08) Abnormal nuclear stress test (Resolved) 65-year-old male with an abnormal cytology positive for cancer cells history of bladder cancer multiple sites plan to proceed with cystoscopy bladder biopsy and will do a cystoscopy under anesthesia take a good look around the bladder and then will do bilateral retrograde pyelograms check both the kidneys.
[2020-04-24] MEDS: Cefazolin 2 GM in 0.9% Normal Saline 100 ML IV (12:50)
--- NOTE | 2020-04-24 12:51 | PCM.DC.URO ---
Discharge Diet: No Restrictions, Light diet - advance as tolerated Discharge Activity: Return to Normal Activity, May Not Drive - for 2 days. Additional Activity Instructions:: Please be aware that pain medications may cause nausea. You should typically eat light foods as you take your pain medication. Pain medication may cause constipation, if this is a problem for you, please discuss with your doctor. Call your doctor if your incision/area has: Continuous Slow Oozing, Sudden Increased Bleeding, Increased Pain/ Swelling, Increased Redness, Foul Smelling Discharge, Swelling at the incision site Call your doctor if you observe: Fever of 101 or Higher, Inability to urinate, Uncontrolled pain Allergies/Adverse Reactions: Allergies No Known Allergies Allergy (Verified 04/23/20 08:10) Medications to take at Discharge Clopidogrel Bisulfate [Plavix] 75 mg PO DAILY 11/07/14 Glimepiride [Amaryl] 4 mg PO DAILY 11/07/14 Sertraline HCl [Zoloft] 100 mg PO QDAY 11/19/17 multivitamin-ferrous fumarate-folic acid 18 mg-400 mcg tablet 1 tab PO QAM 05/23/18 pantoprazole 40 mg tablet,delayed release 40 mg PO QHS 05/23/18 sildenafil 50 mg tablet 50 mg PO QDAY PRN 05/23/18 metformin 500 mg tablet 1,000 mg PO BIDCM tab 12/29/18 fenofibrate nanocrystallized 145 mg tablet 145 mg PO QHS #90 tab 06/19/19 ramipril 2.5 mg capsule 2.5 mg PO DAILY #90 cap 06/19/19 bupropion HCl 150 mg 24 hr tablet, extended release 300 mg PO QAM tab 07/21/19 cholecalciferol (vitamin D3) 50 mcg (2,000 unit) capsule 5,000 unit PO DAILY 07/21/19 nitroglycerin 0.4 mg sublingual tablet 0.4 mg SUBLINGUAL Q5-15M PRN #25 tab 07/21/19 Aspirin E.C. [Ecotrin] 325 mg PO DAILY@0800 04/23/20 Atorvastatin Calcium [Lipitor] 20 mg PO BID 04/23/20 Insulin Glargine,Hum.rec.anlog [Lantus Solostar] 20 unit SQ QHS 04/23/20 Previgen 1 cap PO DAILY 04/23/20 Ubidecarenone [Coq10] 200 mg PO DAILY 04/23/20 Vitamin E 100 unit PO DAILY 04/23/20 Ciprofloxacin [Cipro] 500 mg PO BID #6 tab 04/24/20 Hydrocodone/Acetaminophen [[place] 5-325 Tablet] 1 each PO Q4H PRN PRN 3 Days #10 tablet 04/24/20 The following prescriptions were given: Ciprofloxacin [Cipro] 500 mg PO BID #6 tab Transmission Status: Pending to [facility] Hydrocodone/Acetaminophen [[place] 5-325 Tablet] 1 each PO Q4H PRN PRN 3 Days #10 tablet PRN Reason: pain Transmission Status: Sent to [facility] Primary Care Physician: Talib Ferrara DO [Primary Care Provider] - Test Results: Test results from this visit will be discussed in further detail at your follow-up appointment, if applicable. Please Follow Up With: Ze Saab MD When: in 2 weeks, please call to make an appointment.
--- NOTE | 2020-04-24 13:15 | PCM.OPRPT ---
Problem List (1) Bladder cancer Status: Acute Qualifiers: Bladder location: overlapping sites Qualified Code(s): C67.8 - Malignant neoplasm of overlapping sites of bladder Report of Operation Date of Procedure: 04/24/20 Pre-Operative Diagnosis: History of bladder cancer positive cytology Post-Operative Diagnosis: Same bladder lesion Surgery/Procedure Performed:: Cystoscopy bladder biopsy fulguration of bladder lesion bilateral retrograde pyelograms interpretation fluoroscopic images Description of Surgical Findings:: 65-year-old male taken back to the operating room and smooth induction of anesthesia he was placed in dorsolithotomy position the penis and testicles are prepped and draped in usual sterile fashion went into the bladder with a 21 [place] rigid cystourethroscope that a fitch cystoscopy with a 30 degree lens also used bluelight cystoscopy the only lesion identified were 2 red spots in the dome of the bladder that were raised and reddish but not papillary the rest of the bladder was completely clear with no tumors or lesions or any abnormalities some mild trabeculation trigone was normal. 2 biopsies were done of the sites the sites are very small about 2 mm each. I then cauterized the sites with a Bugbee electrode with electrocautery. We then performed a retrograde pyelogram on the right side that was normal images were saved, and then we performed a retrograde pyelogram the left side and this was also normal images were saved. Sources cytology at this point from the best as I can tell is probably was from the bladder lesions these were biopsied and cauterize completely both retrograde pyelograms are normal the rest of bladder and prostate was normal no other lesions seen within the prostatic urethra so I did not do a biopsy the prosthetic urethra. Patient's anesthetic was reversed and he was taken back to the PACU in good condition follow-up in a few weeks to review the results of the biopsies Type of Anesthesia:: General Drains: none - Admit VTE Documentation VTE Present on Admission: No VTE Mechan Device Prophylaxis: SCD's
[2020-04-24 13:34] VITALS: BP 126/72; BP 136/73; PULSE 62; RESP 16; TEMP 36.7; O2SAT 98
[2020-04-24 13:45] VITALS: BP 125/69; BP 126/72; PULSE 61; RESP 16; O2SAT 96
[2020-04-24] MEDS: Ketorolac 15 MG/ML Vial IV (13:46)
[2020-04-24 14:00] VITALS: BP 126/72; BP 129/72; PULSE 64; RESP 16; O2SAT 98
[2020-04-24 14:19] VITALS: BP 126/72; BP 140/66; PULSE 64; RESP 16; TEMP 36.2; O2SAT 99
[2020-04-24 15:29] VITALS: BP 126/72; BP 149/63; PULSE 72; RESP 18; TEMP 36.4; O2SAT 100
[2020-04-25 07:15] LABS: Bedside Glucose 55 mg/dL (70-110)
[2020-04-25 07:15] LABS: Bedside Glucose 51 mg/dL (70-110)
== END 2020-04-24 15:37 | disposition home or self-care (01) ==
LOC: SDC 09:57 → AC 09:59
PROVIDERS: PCP Family Medicine; Referring Provider Urology; Visit Provider Urology
PROC: 0TBB8ZX Excision of Bladder, Via Natural or Artificial Opening Endoscopic, Diagnostic (ICD-10-PCS; CPT 52250; principal; 2020-04-24 12:05)
DX: N30.20 Other chronic cystitis without hematuria (principal); N30.00 Acute cystitis without hematuria; L85.9 Epidermal thickening, unspecified; I25.10 Atherosclerotic heart disease of native coronary artery without angina pectoris; I10 Essential (primary) hypertension; E78.5 Hyperlipidemia, unspecified; E66.9 Obesity, unspecified; E11.9 Type 2 diabetes mellitus without complications; K21.9 Gastro-esophageal reflux disease without esophagitis; F32.9 Major depressive disorder, single episode, unspecified; I25.2 Old myocardial infarction; Z85.51 Personal history of malignant neoplasm of bladder; Z79.02 Long term (current) use of antithrombotics/antiplatelets; Z79.82 Long term (current) use of aspirin; Z79.4 Long term (current) use of insulin; Z79.899 Other long term (current) drug therapy; Z87.891 Personal history of nicotine dependence; Z68.31 Body mass index [BMI] 31.0-31.9, adult; Z95.5 Presence of coronary angioplasty implant and graft; Z11.59 Encounter for screening for other viral diseases
CPT/HCPCS: 52005; 52204; 76000; 82962; 87635; 88305; G2023; J7120; C1758; J2405; U0004

== ENCOUNTER → 2020-10-04 09:06 | Outpatient (CLI) | payer MEDICARE, SELFPAY ==
[2020-07-17 15:41] VITALS: BMI 30.7
--- NOTE | 2020-10-04 10:00 | MRI_ITS ---
STUDY: MRI LEFT KNEE REASON FOR EXAM: Male, 65 years old. Instability. Pain. TECHNIQUE: Standardized fat and water weighted pulse sequences were obtained in all 3 orthogonal planes. COMPARISON: None. FINDINGS: Normal medial meniscus. Normal hyaline cartilage of the medial femorotibial compartment. There is reactive marrow edema of the medial femoral condyle. There is a partial tear and sprain of the MCL with interstitial and periligamentous edema, series 6 images through . Normal distal semimembranosus, gracilis and semitendinosus tendons. Normal lateral meniscus. Normal hyaline cartilage of the lateral femorotibial compartment. Normal lateral femoral condyle and tibial plateau. Normal proximal tibiofibular articulation. Normal lateral collateral (fibular) ligament. Normal popliteus tendon. Normal biceps femoris tendon. Normal anterior cruciate ligament (ACL). There is chronic sprain and partial tear of the posterior cruciate ligament (PCL). Normal congruent patellofemoral articulation. Normal hyaline cartilage of the patellofemoral compartment. Normal medial and lateral patellar retinaculum. Normal quadriceps tendon. Normal patellar tendon. Normal Hoffa''s fat pad. There is a small volume joint effusion. There is a 1.6 cm Ruiz''s cyst. The soft tissues are unremarkable. The otherwise visualized osseous structures are unremarkable. MRI/Lower Ext Joint Only (Routine) IMPRESSION: Medial collateral ligament sprain and partial tear. Posterior cruciate ligament sprain and partial tear. Bone bruise of the medial femoral condyle. Joint effusion. Electronically Signed: Frederic Verde MD at 10:30 EST , Service support ,
== END ==
PROVIDERS: PCP Family Medicine; Referring Provider Physician Assistant Surgical; Visit Provider Physician Assistant Surgical
DX: M25.362 Other instability, left knee (principal)
CPT/HCPCS: 73721

== ENCOUNTER → 2020-10-29 14:54 | Outpatient (CLI) | payer MEDICARE, SELFPAY ==
[2020-07-17 15:41] VITALS: BMI 30.7
[2020-10-29 17:46] LABS: Absolute Lymphocyte Count 1.31 X10^3/uL (0.83-4.51); Absolute Neutrophil Count 4.3 X10^3/uL (2.0-7.7); Basophil# 0.04 X10^3/uL; Basophil% 0.6 % (0-1); Eosinophil# 0.21 X10^3/uL; Eosinophils% 3.3 % (0-5); Hematocrit 39.8 % (40-54); Hemoglobin 12.8 g/dL (13.0-16.5); Lymphocyte # 1.31 X10^3/ul (4.0); Lymphocyte % 20.8 % (19-41); Mean Corp Hgb Conc 32.2 g/dL (32-36); Mean Corpuscular Hgb 27.4 pg (27.0-32.0); Mean Platelet Vol. 8.9 fl (6.2-12.0); Monocyte# 0.46 X10^3/uL; Monocyte% 7.3 % (0-10); NRBC Flagged by Analyzer 0 % (0-5); Neutrophil # 4.25 X10^3/uL (2.7-7.7); Neutrophil % 67.5 % (47-70); Platelet Count 248 K/mm3 (150-450); RBC Distribution Width CV 13.1 % (11.6-14.6); RBC Distribution Width SD 40.2 fl (35.1-43.9); Red Blood Count 4.68 M/mm3 (4.6-6.2); White Blood Count 6.3 K/mm3 (4.4-11.0)
[2020-10-29 18:29] LABS: Microalbumin,Random Urine 28.7 mg/L (NO RANGE EST.); Microalbumin:Creatinine Ratio 9.8 mg/g CRE (<30 mg/g CRE)
[2020-10-29 18:57] LABS: BUN 22 mg/dL (7-18); Creatinine, Serum 1.56 mg/dL (0.70-1.30); EST Glomerular Filtration Rate 47 mL/min (>60); Glucose 225 mg/dL (74-106)
[2020-10-29 18:58] LABS: ALB/GLOB Ratio 1.3 RATIO (0.9-2.4); AST(SGOT) 23 U/L (15-37); Alanine Aminotransfer ALT/SGPT 32 U/L (16-61); Alkaline Phosphatase 84 U/L (45-117); Anion Gap 5 (5-15); BUN/Creat Ratio 14.1 RATIO (10-20); Calcium,Total 9.3 mg/dL (8.5-10.1); Chloride 103 mmol/L (98-107); Cholesterol 191 mg/dL (200); Est Glom Filt Rate - Afr Amer 57 mL/min (>60); Globulin 3.1 g/dL (2.2-4.2); High Density Lipoprotein 42 mg/dL; Potassium 4.4 mmol/L (3.5-5.1); Protein, Total 7.1 g/dL (6.4-8.2); Sodium Level 135 mmol/L (136-145); Triglycerides 342 mg/dL; Very Low Density Lipoprotein 68 mg/dL (5-40)
== END ==
PROVIDERS: PCP Family Medicine; Referring Provider Family Medicine; Visit Provider Family Medicine
DX: E11.29 Type 2 diabetes mellitus with other diabetic kidney complication (principal); I25.10 Atherosclerotic heart disease of native coronary artery without angina pectoris; I10 Essential (primary) hypertension
CPT/HCPCS: 36415; 80053; 80061; 82043; 82570; 83036; 85025

== ENCOUNTER → 2021-03-05 12:02 | Outpatient (CLI) | payer MEDICARE, SELFPAY ==
[2020-07-17 15:41] VITALS: BMI 30.7
--- NOTE | 2021-03-05 12:05 | RAD_ITS ---
STUDY: X-RAY CHEST REASON FOR EXAM: Male, 65 years old. PRE OP TECHNIQUE: Single AP portable view of the chest. COMPARISON: None. FINDINGS: The lungs are clear and expanded. There is no demonstrated pleural abnormality. Normal size heart. Normal mediastinum and raven. Normal visualized pulmonary arteries. Normal visualized aortic arch and descending thoracic aorta. Normal visualized thoracic spine. Normal visualized ribs, clavicles, and shoulders. There is no demonstrated abnormality of the visualized soft tissue structures of the upper abdomen. RAD/Chest PA and Lateral IMPRESSION: Normal x-ray examination of the chest. Electronically Signed: Duane Dietrich MD at 12:41 EDT Tel , Service support ,
[2021-03-05 12:44] LABS: Absolute Lymphocyte Count 1.38 X10^3/uL (0.83-4.51); Absolute Neutrophil Count 4.3 X10^3/uL (2.0-7.7); Basophil# 0.04 X10^3/uL; Basophil% 0.6 % (0-1); Eosinophil# 0.17 X10^3/uL; Eosinophils% 2.7 % (0-5); Hematocrit 37.7 % (40-54); Hemoglobin 11.5 g/dL (13.0-16.5); Lymphocyte # 1.38 X10^3/ul (4.0); Lymphocyte % 21.8 % (19-41); Mean Corp Hgb Conc 30.5 g/dL (32-36); Mean Corpuscular Hgb 24.4 pg (27.0-32.0); Mean Platelet Vol. 8.9 fl (6.2-12.0); Monocyte# 0.46 X10^3/uL; Monocyte% 7.3 % (0-10); NRBC Flagged by Analyzer 0 % (0-5); Neutrophil # 4.26 X10^3/uL (2.7-7.7); Neutrophil % 67.1 % (47-70); Platelet Count 233 K/mm3 (150-450); RBC Distribution Width CV 14.4 % (11.6-14.6); RBC Distribution Width SD 41.7 fl (35.1-43.9); Red Blood Count 4.71 M/mm3 (4.6-6.2); White Blood Count 6.3 K/mm3 (4.4-11.0)
[2021-03-05 13:10] LABS: Anion Gap 3 (5-15); BUN 21 mg/dL (7-18); BUN/Creat Ratio 14.8 RATIO (10-20); Calcium,Total 9.3 mg/dL (8.5-10.1); Chloride 105 mmol/L (98-107); Creatinine, Serum 1.42 mg/dL (0.70-1.30); EST Glomerular Filtration Rate 53 mL/min (>60); Est Glom Filt Rate - Afr Amer 64 mL/min (>60); Glucose 121 mg/dL (74-106); Potassium 4.3 mmol/L (3.5-5.1); Sodium Level 135 mmol/L (136-145)
[2021-03-05 13:16] LABS: Hemoglobin A1c 7.2 % (3.8-5.6)
== END ==
PROVIDERS: PCP Family Medicine; Referring Provider Podiatrist Foot & Ankle Surgery; Visit Provider Podiatrist Foot & Ankle Surgery
DX: Z01.812 Encounter for preprocedural laboratory examination (principal); E11.29 Type 2 diabetes mellitus with other diabetic kidney complication; Z11.52 Encounter for screening for COVID-19
CPT/HCPCS: 36415; 71046; 80048; 83036; 85025; 85610; 85730; 87635; C9803; U0002

== ENCOUNTER 2021-07-14 14:34 | Outpatient (CLI) | payer MEDICARE, SELFPAY ==
[2021-07-14 10:18] VITALS: BMI 30.7
[2021-07-14 14:39] VITALS: BP 131/72; PULSE 86; RESP 16; TEMP 36.7; O2SAT 98; BMI 28.4
[2021-07-14] MEDS: 0.9% Saline Lock 10 ML Syringe IV ×2 (15:14→16:12)
--- NOTE | 2021-07-14 15:22 | NURSING ---
Pharmacy contacted as infusion has not yet been received.
--- NOTE | 2021-07-14 15:33 | NURSING ---
Infusion received from pharmacy.
[2021-07-14 16:00] VITALS: BP 148/67; PULSE 81; RESP 16; TEMP 36.7; O2SAT 98
[2021-07-14 16:30] VITALS: BP 146/60; PULSE 81; RESP 16; TEMP 37.3; O2SAT 97
[2021-07-14 17:00] VITALS: BP 137/69; PULSE 85; RESP 16; TEMP 37.1; O2SAT 97
== END 2021-07-14 17:04 | disposition home or self-care (01) ==
LOC: ICUOUT 14:34 → ICU 14:35
PROVIDERS: PCP Family Medicine; Visit Provider Nurse Practitioner Acute Care
DX: Z23 Encounter for immunization (principal); U07.1 COVID-19
CPT/HCPCS: J7050; M0243; A4216; Q0244

== ENCOUNTER → 2021-09-01 09:12 | Outpatient (CLI) | payer MEDICARE, SELFPAY ==
[2020-07-17 15:41] VITALS: BMI 30.7
[2021-09-01 12:16] LABS: Absolute Lymphocyte Count 1.07 X10^3/uL (0.83-4.51); Absolute Neutrophil Count 2.8 X10^3/uL (2.0-7.7); Basophil# 0.02 X10^3/uL; Basophil% 0.4 % (0-1); Eosinophil# 0.12 X10^3/uL; Eosinophils% 2.7 % (0-5); Hematocrit 41.8 % (40-54); Hemoglobin 13.4 g/dL (13.0-16.5); Lymphocyte # 1.07 X10^3/ul (0.83-4.51); Mean Corp Hgb Conc 32.1 g/dL (32-36); Mean Corpuscular Hgb 27.1 pg (27.0-32.0); Mean Corpuscular Volume 84.4 fL (80-94); Monocyte# 0.37 X10^3/uL; Monocyte% 8.3 % (0-10); NRBC Flagged by Analyzer 0 % (0-5); Neutrophil # 2.84 X10^3/uL (2.7-7.7); Neutrophil % 63.9 % (47-70); Platelet Count 171 K/mm3 (150-450); RBC Distribution Width CV 14.6 % (11.6-14.6); RBC Distribution Width SD 44.9 fl (35.1-43.9); Red Blood Count 4.95 M/mm3 (4.6-6.2); White Blood Count 4.5 K/mm3 (4.4-11.0)
[2021-09-01 12:36] LABS: Microalbumin,Random Urine 80.7 mg/L (NO RANGE EST.); Microalbumin:Creatinine Ratio 27.9 mg/g CRE (<30 mg/g CRE)
[2021-09-01 12:38] LABS: AST(SGOT) 29 U/L (15-37); Alanine Aminotransfer ALT/SGPT 37 U/L (16-61); Albumin, Serum 3.8 g/dL (3.2-5.0); Alkaline Phosphatase 71 U/L (45-117); Anion Gap 4 (5-15); BUN 12 mg/dL (7-18); BUN/Creat Ratio 9.1 RATIO (10-20); Bilirubin, Direct 0.18 mg/dL (0.00-0.30); Calcium,Total 9.7 mg/dL (8.5-10.1); Chloride 103 mmol/L (98-107); Cholesterol 185 mg/dL (200); Creatinine, Serum 1.32 mg/dL (0.70-1.30); EST Glomerular Filtration Rate 57 mL/min (>60); Est Glom Filt Rate - Afr Amer 69 mL/min (>60); Globulin 3.7 g/dL (2.2-4.2); Glucose 256 mg/dL (74-106); High Density Lipoprotein 47 mg/dL; Potassium 4.2 mmol/L (3.5-5.1); Protein, Total 7.5 g/dL (6.4-8.2); Sodium Level 138 mmol/L (136-145); Triglycerides 213 mg/dL; Very Low Density Lipoprotein 43 mg/dL (5-40)
[2021-09-01 12:53] LABS: Hemoglobin A1c 8.7 % (3.8-5.6)
== END ==
PROVIDERS: Internal Medicine Cardiovascular Disease; PCP Family Medicine; Referring Provider Family Medicine; Visit Provider Family Medicine
DX: I12.9 Hypertensive chronic kidney disease with stage 1 through stage 4 chronic kidney disease, or unspecified chronic kidney disease (principal); E11.22 Type 2 diabetes mellitus with diabetic chronic kidney disease; N18.30 Chronic kidney disease, stage 3 unspecified; E78.00 Pure hypercholesterolemia, unspecified; D64.9 Anemia, unspecified
CPT/HCPCS: 36415; 80053; 80061; 82043; 82248; 82570; 83036; 85025

== ENCOUNTER 2021-12-25 07:00 | Outpatient (CLI) | payer MEDICARE, SELFPAY ==
--- NOTE | 2021-12-25 17:06 | STRESSREP ---
Stress Test Report Exercise myocardial perfusion stress test. 66-year-old man with a history of coronary artery disease. Stress protocol: Resting EKG demonstrates normal sinus rhythm with a rate of 68 bpm normal intervals are noted resting blood pressure is 138/82 mmHg. The patient exercised according to the regular Polo protocol for 6 minutes and 30 seconds. The maximum heart rate attained was 115 bpm which was 75% of max impact at heart rate the maximum workload was 8.4 metabolic equivalents. At rest there were no ST or T wave changes noted suggest ischemia at peak exercise less than [address] depression was noted with did not meet the criteria for ischemia. The patient did not experience chest pain but had severe shortness of breath at peak exercise necessitating termination of the test. The peak blood pressure was 164/68 mmHg. Rate-pressure product was 17,400. Myocardial perfusion protocol. 11.6 mCi of technetium 99m sestamibi was injected at rest. The patient exercised according to regular Polo protocol for 6-1/2 minutes and at peak exercise 34.8 mCi of technetium 99m sestamibi was injected stress images were obtained stress and rest images were reconstructed and compared in the short axis vertical long and horizontal long axis. Gated images were also obtained to Perfusion SPECT analysis: Review of the images demonstrate normal perfusion noted in all areas of the myocardium except for the apex on the stress images. The rest of the ortiz appear to be normally perfused. The resting images demonstrate normally perfused patent. Mild ischemia in the apex cannot be completely excluded. No obvious infarct is noted. Gated SPECT analysis: The gated ejection fraction is 58%. Conclusion: Exercise myocardial perfusion stress test with evidence of mild apical ischemia. Preserved ejection fraction. Marked exercise shortness of breath suggestive of anginal equivalent. In comparison to the stress test from 2019 where he exercised 8 minutes his exercise capacity appears to have diminished at least moderately.
== END 2021-12-25 23:59 | disposition short-term general hospital (02) ==
LOC: CVS 07:03
PROVIDERS: PCP Family Medicine; Referring Provider Family Medicine; Visit Provider Family Medicine
DX: R07.9 Chest pain, unspecified (principal); I25.10 Atherosclerotic heart disease of native coronary artery without angina pectoris
CPT/HCPCS: 78452; 93017; A9500; A4216

== ENCOUNTER 2022-01-02 08:07 | Day surgery (SDC) | payer MEDICARE, SELFPAY ==
--- NOTE | 2021-12-29 08:55 | RAD_ITS ---
STUDY: X-RAY CHEST REASON FOR EXAM: Male, 66 years old. Dyspnea TECHNIQUE: Frontal and lateral views COMPARISON: 03/05/2021 FINDINGS: The lungs are clear and expanded. There is no demonstrated pleural abnormality. Normal size heart. Normal mediastinum and raven. Normal visualized pulmonary arteries. Normal visualized aortic arch and descending thoracic aorta. Degenerative changes of the thoracic spine. Normal visualized ribs, clavicles, and shoulders. There is no demonstrated abnormality of the visualized soft tissue structures of the upper abdomen. RAD/Chest PA and Lateral IMPRESSION: Normal x-ray examination of the chest. Electronically Signed: Talha Peres DO at 16:48 EST Reading Location ID and State: [facility] / [place] Tel [phone], Service support ,
[2021-12-29 08:58] LABS: Absolute Neutrophil Count 3.6 X10^3/uL (2.0-7.7); Basophil# 0.03 X10^3/uL; Basophil% 0.6 % (0-1); Eosinophil# 0.25 X10^3/uL; Eosinophils% 4.8 % (0-5); Lymphocyte % 15.5 % (19-41); Mean Corp Hgb Conc 30.6 g/dL (32-36); Mean Corpuscular Hgb 25.2 pg (27.0-32.0); Mean Corpuscular Volume 82.4 fL (80-94); Mean Platelet Vol. 8.9 fl (6.2-12.0); Monocyte% 9.7 % (0-10); NRBC Flagged by Analyzer 0 % (0-5); Neutrophil # 3.56 X10^3/uL (2.7-7.7); Neutrophil % 68.8 % (47-70); Platelet Count 262 K/mm3 (150-450); RBC Distribution Width CV 13.7 % (11.6-14.6); RBC Distribution Width SD 41.1 fl (35.1-43.9); Red Blood Count 4.37 M/mm3 (4.6-6.2); White Blood Count 5.2 K/mm3 (4.4-11.0)
[2021-12-29 09:34] LABS: Anion Gap 4 (5-15); BUN 26 mg/dL (7-18); BUN/Creat Ratio 20.6 RATIO (10-20); Calcium,Total 9.1 mg/dL (8.5-10.1); Chloride 108 mmol/L (98-107); Creatinine, Serum 1.26 mg/dL (0.70-1.30); EST Glomerular Filtration Rate 60 mL/min (>60); Est Glom Filt Rate - Afr Amer 73 mL/min (>60); Glucose 103 mg/dL (74-106); Potassium 4.9 mmol/L (3.5-5.1); Sodium Level 137 mmol/L (136-145)
[2021-12-30 13:06] VITALS: BMI 30.4
[2022-01-02 08:51] LABS: Bedside Glucose 74 mg/dL (70-110)
--- NOTE | 2022-01-02 10:12 | CON.PCM.CA_ITS ---
Assessment & Plan Assessment/Plan (1) Abnormal cardiovascular stress test: PLAN: He does have abnormal cardiovascular stress test. The plan is for him to undergo a cardiac catheterization today and depending on the findings further recommendations will be made. (2) History of coronary artery stent placement: PLAN: He does have a history of previous angioplasty and stenting of the circumflex artery and the right coronary artery. This will be reevaluated at the cardiac catheterization today. (3) Essential (primary) hypertension: PLAN: He does have a history of hypertension. This appears to be well controlled we will continue with the same medications for now. Thank you for allowing me to participate in the care of your patient. Please don't hesitate to call if any issues arise. HPI Consult Data Date of Consult: 01/02/22 HPI Narrative HPI Narrative: CECELIA BENZ, is a 66 M who presents for a heart catheterization following an abnormal stress test which was performed routinely on 12/26/2021. He had been experiencing some chest discomfort with exertion which prompted the testing. He is a gentleman with a history of coronary artery disease status post angioplasty and stenting of the right coronary artery as well as the circumflex artery in May 2005 and December 2007. He also has a history of right carotid endarterectomy, hypertension, hyperlipidemia, and taina betes mellitus. He did unfortunately contract Covid in June and got the anti body infusion. He says he feels better now. As you know he had presented in June 2019 with an abnormal stress test he underwent a left heart catheterization which demonstrated proximal 50% stenosis, distal 80% stenosis in the LAD, left circumflex artery with 30 to 80% stenosis and an occluded right coronary artery with [id number] collaterals. More recently started having some chest discomfort prompting the testing. [facility] Medical History Atherosclerotic heart disease of [place] coronary artery without angina pectoris Bladder cancer COVID-19 virus detected (07/14/21) Essential (primary) hypertension Hyperlipidemia Obesity Stenosis of right carotid artery Type 2 diabetes mellitus Home Medications clopidogrel 75 mg PO DAILY 11/07/14 [History Last Taken 01/02/22] glimepiride 4 mg PO DAILY 11/07/14 [History Last Taken 02/14/16 4 MG] sertraline 100 mg PO QDAY 11/19/17 [History Last Taken Unknown] multivitamin-ferrous fumarate-folic acid 18 mg-400 mcg tablet 1 tab PO QAM 05/23/18 [History Last Taken Unknown] pantoprazole 40 mg tablet,delayed release 40 mg PO QHS 05/23/18 [History Last Taken 01/02/22] sildenafil 50 mg tablet 50 mg PO QDAY PRN 05/23/18 [History Last Taken Unknown] fenofibrate nanocrystallized 145 mg tablet 145 mg PO QHS #90 tab 06/19/19 [Rx Last Taken Unknown] ramipril 2.5 mg capsule 2.5 mg PO DAILY #90 cap 06/19/19 [Rx Last Taken 01/02/22] cholecalciferol (vitamin D3) 50 mcg (2,000 unit) capsule 5,000 unit PO DAILY 07/21/19 [History Last Taken Unknown] nitroglycerin 0.4 mg sublingual tablet 0.4 mg SUBLINGUAL Q5-15M PRN #25 tab 07/21/19 [Rx Last Taken Unknown] Previgen 1 cap PO DAILY 04/23/20 [History Last Taken Unknown] aspirin 325 mg PO DAILY@0800 04/23/20 [History Last Taken 01/02/22] atorvastatin 20 mg PO BID 04/23/20 [History Last Taken Unknown] vitamin E 100 unit PO DAILY 04/23/20 [History Last Taken Unknown] bupropion HCl 300 mg 24 hr tablet, extended release 300 mg PO QAM tab 07/17/20 [History Last Taken Unknown] insulin glargine 100 unit/mL (3 mL) subcutaneous pen 16 unit SC QHS ml 07/17/20 [History Last Taken 07/13/21] metformin 1,000 mg tablet 1,000 mg PO BID tab 07/17/20 [History Last Taken 01/01/22] Allergy/AdvReac Type Severity Reaction Status Date / Time No Known Allergies Allergy Verified 08/29/21 08:24 Family History Mother CVA (cerebral vascular accident) Sister Diabetes Breast cancer Surgical History History of bladder surgery History of coronary artery stent placement (01/05/08) History of left heart catheterization (08/10/19) History of right-sided carotid endarterectomy (11/23/17) Social History Smoking Status: Former smoker second hand exposure: Yes alcohol intake: current alcohol intake frequency: holidays/special occasions only Alcohol type: beer, wine and hard liquor substance use type: does not use caffeine: Yes eating out: 1-3 times/week during the past year weight has: remained stable what type of physical activity do you participate in: walking frequency: 3-4 times per week duration: 60-90 minutes/day seatbelt use: always do you feel safe at home: Yes ROS Constitutional Constitutional: Denies fever(s) or weight loss Eyes Eyes: Reports systems reviewed and no addt'l complaints, except as documented ENT HEENT: Reports systems reviewed and no addt'l complaints, except as documented Cardiovascular Cardiovascular: Reports chest pain at rest, chest pain with activity, dyspnea at rest and dyspnea on exertion; Denies edema, palpitations or paroxysmal nocturnal dyspnea Respiratory/Chest Respiratory/Chest: Denies dyspnea on exertion, productive cough, shortness of breath at rest or shortness of breath with exertion Gastrointestinal Gastrointestinal: Denies change in bowel habits, nausea, vomiting or weight changes Genitourinary Genitourinary: Denies difficulty urinating Musculoskeletal Musculoskeletal: Denies joint stiffness or muscle weakness Integumentary Integumentary: Denies lesions Neurologic Neurologic: Denies dizziness or syncope Psychiatric Psychiatric: Denies anxiety Endocrine Endocrinology: Denies excessive sweating or fatigue Hematologic/Lymphatic Hematologic/Lymphatic: Denies anemia Allergic/Immunologic Allergic/Immunologic: Denies seasonal rhinorrhea Physical Exam Const alert, oriented x3 and no apparent distress General Appearance: cooperative HEENT hearing grossly normal bilaterally Head and Scalp: atraumatic Eyes EOMs intact bilaterally Neck General: normal visual inspection Chest inspection of chest normal and palpation of chest normal Resp normal respiratory effort Auscultation: clear to auscultation bilaterally Cardio regular rate, regular rhythm, S1 normal heart sound and S2 normal heart sound Jugular Venous Distention: JVD GI normal to inspection, nondistended, normoactive bowel sounds Extremity normal capillary refill and no pedal edema Peripheral Pulses: Yes pulses 2+ throughout and femoral pulses present Skin no rashes or lesions noted Neuro oriented x3 and CN's II-XII intact bilaterally Psych Appearance: grossly normal and appropriate Risk Stratification Risk Stratification Applicable: No Objective Data Vital Signs: Weight: 218 lb Body Mass Index (BMI) 30.4 Lab / Micro Data Result Diagrams: 12/29/21 08:36 12/29/21 08:36 Labs: Laboratory Results - last 24 hr 01/02/22 08:46: POC Glucose 74 Cardiology Labs/Tests Rhythm: EKG: ECHO: Stress Test: Cardiac Cath: PCI: CT Surgery: Holter monitor: EPS: PPM: CXR: Chest CT Scan:
--- NOTE | 2022-01-02 10:48 | CASEMGMT ---
In-network facilities with pt's [employer]: [facility], [place], [facility], [facility], , [facility], [facility] Vanegas, Chris [facility], [facility]. Matt Molina RN CM
--- NOTE | 2022-01-02 11:01 | CL.D_ITS ---
Patient Name: CECELIA BENZ Study Date: 01/02/2022 Performing: Ht: 70.86 inches 180 cm : 1955 Wt: 218.26 lbs 99 kg Age: 66 Gender: male BSA: 2.19 PROCEDURE(S) PERFORMED DC01-(21892)LHC/COR/LV CLINICAL PROFILE AND INDICATIONS Indications: Worsening Angina Heart Failure: None Stress/Imaging Date: 12/20/20ress Test with SPECT MPI: Positive Intermediate Risk CAD Presentations: Unstable angina. CONCLUSIONS Triple-vessel disease noted in a diabetic with preserved ejection fraction. RECOMMENDATIONS Would obtain surgical opinion as to whether the patient has good targets and if the patient is declin ed for surgery then we will proceed with targeted PCI DESCRIPTION OF PROCEDURE The patient arrived to the procedure lab. The risks and benefits of the procedure as well as a full d escription of our services here and current unavailability of surgical backup were fully explained to the patient and/or their significant other prior to the catheterization. The Timeout was completed, verifying the correct patient and procedure. The patient's procedural site was prepped and draped in the usual fashion. Local anesthetic was given subcutaneously to right radial region with Lidocaine 2% . Using a modified Seldinger technique, arterial access was obtained via the right radial artery, a 6 Fr sheath was inserted. Right Coronary Artery selective angiography was then performed in multiple v iews using a 5 Fr. 4.0 [place] catheter. Left Coronary Artery selective angiography was performed in mu ltiple views using a 5 Fr. 4.0 [place] catheter. Left Ventriculography was performed in MUNOZ projection using a 5 Fr. [place] catheter. LV to AO pullback pressures were then recorded.The arterial sheath was pulled and a TR Band was applied for hemostasis CORONARY ANGIOGRAPHY DOMINANCE: Right Dominant LEFT HEART ASSESSMENT Left Ventricular Ejection Fraction: by LV Gram 55 % Normal LV wall motion Normal Left Ventricular systolic function LEFT MAIN: Mild calcification, No significant disease noted LEFT ANTERIOR DESCENDING ARTERY: Long area of stenosis noted in the mid LAD of approximately 70%Follo wed by an area of 30% stenosis in the distal 80% stenosis CIRCUMFLEX ARTERY: Nondominant but large disease vessel with first obtuse marginal branch with diffus e 60 to 70% stenosis, second obtuse marginal branch with diffuse 60 to 70% stenosis, mid left circumf leonard artery with previously placed stent which is patent with 80% stenosis, third obtuse marginal bran ch with 70% stenosis. RIGHT CORONARY ARTERY: PROX RCA: is occluded COLLATERAL FLOW: Collateral flow from Left to Right COMPLICATIONS No Complications PROCEDURE MEDICATIONS Fentanyl 50 mcg IV Versed 1 mg IV Versed 1 mg IV Oxygen: 2 L/min via nasal cannula Heparin given IA 01/02/2022 09:52:45 Verapamil 2.5mg, Ntg 100mcgs, 3000 units of Heparin given IA 01/02/2022 09:52:45 IV Bolus: .9 NaCl 200 ml total 01/02/2022 10:24:55 SUMMARY OF HEMODYNAMIC DATA Time AIR REST ECG 08:33:33 ECG 09:27:23 AO 92/51 (67) SA 09:54:20 LV 108/2, 14 10:02:15 LV 101/2, 9 10:03:13 LV 93/4, 11 10:03:52 LVp 94/3, 11 10:03:56 AO 95/49 (66) 10:04:01 AOp 95/49 (66) 10:04:01
== END 2022-01-02 23:59 | disposition home or self-care (01) ==
PROVIDERS: PCP Family Medicine; Referring Provider Internal Medicine Cardiovascular Disease; Visit Provider Internal Medicine Cardiovascular Disease
DX: I25.10 Atherosclerotic heart disease of native coronary artery without angina pectoris (principal); E11.9 Type 2 diabetes mellitus without complications; Z79.4 Long term (current) use of insulin; I10 Essential (primary) hypertension; E78.5 Hyperlipidemia, unspecified; I65.21 Occlusion and stenosis of right carotid artery; E66.9 Obesity, unspecified; Z79.899 Other long term (current) drug therapy; Z79.82 Long term (current) use of aspirin; Z68.38 Body mass index [BMI] 38.0-38.9, adult; Z86.16 Personal history of COVID-19; Z85.51 Personal history of malignant neoplasm of bladder; Z95.5 Presence of coronary angioplasty implant and graft; Z79.02 Long term (current) use of antithrombotics/antiplatelets; Z87.891 Personal history of nicotine dependence
CPT/HCPCS: 36415; 71046; 80048; 82962; 85025; 93458; 99152; 99153; J7040; Q9967; C1769; C1894

== ENCOUNTER 2022-01-07 12:42 | Outpatient (CLI) | payer MEDICARE, SELFPAY | END 2022-01-07 23:59 | disposition home or self-care (01) | LOC: MTLAB 12:46 | PROVIDERS: PCP Family Medicine; Referring Provider Internal Medicine Cardiovascular Disease; Visit Provider Internal Medicine Cardiovascular Disease | DX: Z00.00 Encounter for general adult medical examination without abnormal findings (principal) ==

== ENCOUNTER 2022-01-14 08:57 | Day surgery (SDC) | payer MEDICARE, SELFPAY ==
[2022-01-07 15:52] LABS: Anion Gap 9 (5-15); BUN 27 mg/dL (7-18); BUN/Creat Ratio 18.8 RATIO (10-20); Calcium,Total 9.4 mg/dL (8.5-10.1); Chloride 105 mmol/L (98-107); Creatinine, Serum 1.44 mg/dL (0.70-1.30); EST Glomerular Filtration Rate 52 mL/min (>60); Est Glom Filt Rate - Afr Amer 63 mL/min (>60); Glucose 83 mg/dL (74-106); Potassium 4.7 mmol/L (3.5-5.1); Sodium Level 137 mmol/L (136-145)
[2022-01-13 07:04] VITALS: BMI 30.4
--- NOTE | 2022-01-14 09:12 | HP.PCM_ITS ---
History and Physical CECELIA BENZ, is a 66 M who presents for a stagged PCI. He had been experiencing some chest discomfort with exertion which prompted the testing. He is a gentleman with a history of coronary artery disease status post angioplasty and stenting of the right coronary artery as well as the circumflex artery in May 2005 and December 2007. He also has a history of right carotid endarterectomy, hypertension, hyperlipidemia, and diabetes mellitus. He had called our office with complaints of chest discomfort. He underwent a stress test on December 26, 2021 which was noted to be abnormal. On January 02, 2022 he underwent a heart catheterization which demonstrated: LEFT MAIN: Mild calcification, No significant disease noted LEFT ANTERIOR DESCENDING ARTERY: Long area of stenosis noted in the mid LAD of approximately 70%Followed by an area of 30% stenosis in the distal 80% stenosis CIRCUMFLEX ARTERY: Nondominant but large disease vessel with first obtuse marginal branch with diffuse 60 to 70% stenosis, second obtuse marginal branch with diffuse 60 to 70% stenosis, mid left circumflex artery with previously placed stent which is patent with 80% stenosis, third obtuse marginal branch with 70% stenosis. RIGHT CORONARY ARTERY: PROX RCA: is occluded COLLATERAL FLOW: Collateral flow from Left to Right It was discussed with him to proceed with surgery however he declined. He is here today for targeted PCI. [facility] Medical History Atherosclerotic heart disease of [place] coronary artery without angina pectoris Bladder cancer COVID-19 virus detected (07/14/21) Essential (primary) hypertension Hyperlipidemia Obesity Stenosis of right carotid artery Type 2 diabetes mellitus Home Medications clopidogrel 75 mg PO DAILY 11/07/14 [History Last Taken 01/02/22] glimepiride 4 mg PO DAILY 11/07/14 [History Last Taken 02/14/16 4 MG] sertraline 100 mg PO QDAY 11/19/17 [History Last Taken Unknown] multivitamin-ferrous fumarate-folic acid 18 mg-400 mcg tablet 1 tab PO QAM 05/23/18 [History Last Taken Unknown] pantoprazole 40 mg tablet,delayed release 40 mg PO QHS 05/23/18 [History Last Taken 01/02/22] sildenafil 50 mg tablet 50 mg PO QDAY PRN 05/23/18 [History Last Taken Unknown] fenofibrate nanocrystallized 145 mg tablet 145 mg PO QHS #90 tab 06/19/19 [Rx Last Taken Unknown] ramipril 2.5 mg capsule 2.5 mg PO DAILY #90 cap 06/19/19 [Rx Last Taken 01/02/22] cholecalciferol (vitamin D3) 50 mcg (2,000 unit) capsule 5,000 unit PO DAILY 07/21/19 [History Last Taken Unknown] nitroglycerin 0.4 mg sublingual tablet 0.4 mg SUBLINGUAL Q5-15M PRN #25 tab 07/21/19 [Rx Last Taken Unknown] Previgen 1 cap PO DAILY 04/23/20 [History Last Taken Unknown] aspirin 325 mg PO DAILY@0800 04/23/20 [History Last Taken 01/02/22] atorvastatin 20 mg PO BID 04/23/20 [History Last Taken Unknown] vitamin E 100 unit PO DAILY 04/23/20 [History Last Taken Unknown] bupropion HCl 300 mg 24 hr tablet, extended release 300 mg PO QAM tab 07/17/20 [History Last Taken Unknown] insulin glargine 100 unit/mL (3 mL) subcutaneous pen 16 unit SC QHS ml 07/17/20 [History Last Taken 07/13/21] metformin 1,000 mg tablet 1,000 mg PO BID tab 07/17/20 [History Last Taken 01/01/22] Allergy/AdvReac Type Severity Reaction Status Date / Time No Known Allergies Allergy Verified 08/29/21 08:24 Family History Mother CVA (cerebral vascular accident) Sister Diabetes Breast cancer Surgical History History of bladder surgery History of coronary artery stent placement (01/05/08) History of left heart catheterization (08/10/19) History of right-sided carotid endarterectomy (11/23/17) Social History Smoking Status: Former smoker second hand exposure: Yes alcohol intake: current alcohol intake frequency: holidays/special occasions only Alcohol type: beer, wine and hard liquor substance use type: does not use caffeine: Yes eating out: 1-3 times/week during the past year weight has: remained stable what type of physical activity do you participate in: walking frequency: 3-4 times per week duration: 60-90 minutes/day seatbelt use: always do you feel safe at home: Yes ROS Constitutional Constitutional: Denies fever(s) or weight loss Eyes Eyes: Reports systems reviewed and no addt'l complaints, except as documented ENT HEENT: Reports systems reviewed and no addt'l complaints, except as documented Cardiovascular Cardiovascular: Reports chest pain at rest, chest pain with activity, dyspnea at rest and dyspnea on exertion; Denies edema, palpitations or paroxysmal nocturnal dyspnea Respiratory/Chest Respiratory/Chest: Denies dyspnea on exertion, productive cough, shortness of breath at rest or shortness of breath with exertion Gastrointestinal Gastrointestinal: Denies change in bowel habits, nausea, vomiting or weight changes Genitourinary Genitourinary: Denies difficulty urinating Musculoskeletal Musculoskeletal: Denies joint stiffness or muscle weakness Integumentary Integumentary: Denies lesions Neurologic Neurologic: Denies dizziness or syncope Psychiatric Psychiatric: Denies anxiety Endocrine Endocrinology: Denies excessive sweating or fatigue Hematologic/Lymphatic Hematologic/Lymphatic: Denies anemia Allergic/Immunologic Allergic/Immunologic: Denies seasonal rhinorrhea Physical Exam Const alert, oriented x3 and no apparent distress General Appearance: cooperative HEENT hearing grossly normal bilaterally Head and Scalp: atraumatic Eyes EOMs intact bilaterally Neck General: normal visual inspection Chest inspection of chest normal and palpation of chest normal Resp normal respiratory effort Auscultation: clear to auscultation bilaterally Cardio regular rate, regular rhythm, S1 normal heart sound and S2 normal heart sound Jugular Venous Distention: JVD GI normal to inspection, nondistended, normoactive bowel sounds Extremity normal capillary refill and no pedal edema Peripheral Pulses: Yes pulses 2+ throughout and femoral pulses present Skin no rashes or lesions noted Neuro oriented x3 and CN's II-XII intact bilaterally Psych Appearance: grossly normal and appropriate Assessment & Plan Assessment/Plan (1) Abnormal cardiovascular stress test: (2) Arteriosclerotic heart disease (ASHD): (3) Chest pain: (4) Essential (primary) hypertension: (5) Hyperlipidemia: (6) Type 2 diabetes mellitus: PLAN: Patient will proceed with PCI, follow-up will be scheduled accordingly.
--- NOTE | 2022-01-14 12:45 | EKG12_ITS ---
Test Reason : AM EKG Blood Pressure : / mmHG Vent. Rate : 066 BPM Atrial Rate : 066 BPM P-R Int : 220 ms QRS Dur : 096 ms QT Int : 386 ms P-R-T Axes : 068 020 038 degrees QTc Int : 404 ms Sinus rhythm with 1st degree A-V block Otherwise normal ECG Confirmed by FRANKLIN ALVAREZ, TODD ([id number]), magazine editor LUZ AZUL ([id number]) on 01/15/2022 1:40:30 PM Referred By: Marli Odell Confirmed By:MAGALI ODELL MD
--- NOTE | 2022-01-14 13:47 | CL.I_ITS ---
Patient Name: CECELIA BENZ Study Date: 01/14/2022 Performing: Rush Odell MD Ht: 70.86 inches 180 cm : 1955 Wt: 218.26 lbs 99 kg Age: 66 Gender: male BSA: 2.19 PROCEDURE(S) PERFORMED IC01-([id number])PTCA, SINGLE CORONARY ARTERY IC02-(78008)PTCA, EACH ADD'L CORONARY ART, SAME MAJOR CLINICAL PROFILE AND CO-MORBIDITIES Indications: Other Heart Failure: None CAD Presentations: Unstable angina. CONCLUSIONS 1. Successful PTCA alone to OM1 and OM2 RECOMMENDATIONS Patient should return for PCI of the LAD in about 4 weeks DESCRIPTION OF PROCEDURE The patient arrived to the procedure lab. The risks and benefits of the procedure as well as a full d escription of our services here and current unavailability of surgical backup were fully explained to the patient and/or their significant other prior to the catheterization. The Timeout was completed, verifying the correct patient and procedure. The patient's procedural site was prepped and draped in the usual fashion. Local anesthetic was given subcutaneously to right radial region with Lidocaine 2% . Using a modified Seldinger technique, arterial access was obtained via the right radial artery, a 6 Fr sheath was inserted.. XB 3 Guide catheter was inserted and engaged into the LCA. [employer] [place] Guide wire was advanced to the 2nd OM. Emerge 2.25 x 12 Balloon catheter was inserted. Balloon catheter was advanced across l esion in the second obtuse marginal, proximal PTCA balloon inflated at 8 atms for 13 secs. PTCA ballo on inflated at 8 atms for 7 secs. PTCA balloon inflated at 10 atms for 11 secs. PTCA balloon inflated at 10 atms for 8 secs. PTCA balloon inflated at 10 atms for 6 secs. PTCA balloon inflated at 10 atms for 5 secs. PTCA balloon inflated at 10 atms for 10 secs. PTCA balloon inflated at 10 atms for 8 sec s. Orsiro 2.5 x 18 Drug Eluting stent was inserted. Drug Eluting stent was removed intact, failed to cross lesion NC Euphora 2.25 x 15 Balloon catheter was inserted. Balloon catheter was advanced across lesion in the second obtuse marginal, proximal PTCA balloon inflated at 14 atms for 11 secs. PTCA ba lloon inflated at 14 atms for 8 secs. PTCA balloon inflated at 18 atms for 15 secs. PTCA balloon inflated at 16 atms for 6 secs. PTCA balloon inflated at 16 atms for 5 secs. PTCA balloon inf lated at 16 atms for 7 secs. PTCA balloon inflated at 16 atms for 6 secs. Orsiro 2.5 x 18 Drug Elutin g stent was reinserted Drug Eluting stent was removed intact, failed to cross lesion Runthrough Guide wire was inserted as a teodora wire Orsiro 2.5 x 18 Drug Eluting stent was reinserted Drug Eluting juan pablo nt was removed intact, failed to cross lesion Nc Emerge 2.25 x 20 Balloon catheter was inserted. Ball oon catheter was advanced across lesion in the second obtuse marginal, proximal PTCA balloon inflated at 12 atms for 8 secs. PTCA balloon inflated at 12 atms for 12 secs. PTCA balloon inflated at 12 roel s for 16 secs. PTCA balloon inflated at 12 atms for 8 secs. PTCA balloon inflated at 16 atms for 14 s ecs. [employer] [place] Guide wire was repositioned to the 1st OM Emerge 2.0 x 2 Balloon catheter was inse rted. Balloon catheter was advanced across lesion in the first obtuse marginal, proximal. PTCA balloon inflated at 8 atms for 8 secs. PTCA balloon inflated at 12 atms for 28 secs. The arteri al sheath was pulled and a TR Band was applied for hemostasis INTERVENTION INFORMATION LESION SITE: 2nd OM (Proximal) Lesion Complexity: High/C, chronic total occlusion: No, lesion at bifurcation: No, thrombus present: No, lesion length: 18 mm, culprit lesion: Yes, Previously treated lesion: No Pre Stenosis: 90 % Pre intervention LUZ ELENA flow: 3 PROCEDURE: Balloon Angioplasty The stent did not cross. We had an excellent balloon angioplasty result and patient had restenosis w ith previous stents in the RCA. We felt that it would be better to accept the excellent PTCA result rather than trying further to place a stent. Post Stenosis: 0 % Post intervention LUZ ELENA flow: 3 Lesion Devices: Zelaya .014 BMW [place] Straight 190cm Cardinal 6 Fr XB3.0 100cm Guide Catheter Terrell Sci EMERGE MR 2.25x12 BALLOON Medtronic NC EUPHORA RX 2.25x15 BALLOON Terumo .014 Runthrough Extra Floppy 180cm straight Terrell Sci NC EMERGE MR 2.25x20 BALLOON LESION SITE: 1st OM (Proximal) Lesion Complexity: High/C, chronic total occlusion: No, lesion at bifurcation: No, thrombus present: No, lesion length: 20 mm, culprit lesion: Yes, Previously treated lesion: No Pre Stenosis: 90 % Pre intervention LUZ ELENA flow: 3 PROCEDURE: Balloon Angioplasty This vessel is about 1.75 to 2 mm in diameter. There was excellent angiographic result with PTCA marianela ne and we felt that this may be the better approach rather than trying to place a 2.25 mm stent in th is vessel. Post Stenosis: 0 % Post intervention LUZ ELENA flow: 3 Lesion Devices: Zelaya .014 [employer] [place] Straight 190cm Cardinal 6 Fr XB3.0 100cm Guide Catheter Terrell Sci EMERGE MR 2.00x20 BALLOON COMPLICATIONS No Complications PROCEDURE MEDICATIONS Fentanyl 50 mcg IV Versed 1 mg IV Oxygen: 2 L/min via nasal cannula Brilinta 180 mg PO @ 01/14/2022 09:22:31 Heparin given IA 01/14/2022 10:58:13 Heparin 5000 unit(s) IV 01/14/2022 10:58:43 Heparin 1000 unit(s) IV 01/14/2022 11:26:08 Verapamil 2.5mg, Ntg 100mcgs, 3000 units of Heparin given IA 01/14/2022 10:58:13 SUMMARY OF HEMODYNAMIC DATA Time AIR REST ECG 09:24:26 AO 109/68 (86) SA 10:59:05 Signed By Rush Odell MD On 01/14/2022 13:47:10 Rush Odell MD
--- NOTE | 2022-01-14 14:26 | CRPHASE1_ITS ---
Patient Communication Former Patient:: Phase I PHII Cardiac Rehab Discussed with Patient:: Yes Guide to Cardiac Rehab Given to Patient:: Yes Cardiac Rehab Facility Choice List Given to Patient:: Yes Choice Program [facility] CR PHII:: Communication Given to CR Choice Program Other:: Communication Given to CR Project Management Manager:: Marli Odell Refer Phase II Cardiac Rehab:: Yes Sessions:: 36 sessions - 3 days/wk, 12 weeks Cardiac Rehabilitation Info Cardiac Rehabilitation Program Information: Cardiac Rehabilitation is important for patients like you who are recovering from a heart problem. Cardiac rehabilitation programs are recognized as integral to the continued care of the patient with coronary heart disease. The cardiac rehabilitation program is designed to optimize a patient's physical, psychological, and social functioning. Health career resource specialist work in cardiac rehabilitation programs and assist you with getting the treatments you need to get stronger and healthier - like exercise, healthy eating habits, and medications. Cardiac rehabilitation has been show to help people with heart problems live longer and have better life enjoyment than people who do not go to cardiac rehabilitation. Please contact the Cardiac Rehabilitation Program at [facility] at in two weeks if you have not heard from them.
--- NOTE | 2022-01-14 14:27 | CRPH1.INSTRU ---
General Education CAD and cardiac anatomy and function:: Patient communicates acknowledgment Explanation of diagnoses and procedures:: Patient communicates acknowledgment Sign/Symptoms of NH:: Patient communicates acknowledgment Antiplatelet therapy: Patient communicates acknowledgment Smoking Patient Nicotine/Smoking Risk Factors Are:: Non-smoker Recommendations Include:: Previous smoker; encourage continued cessation Nicotine/Smoking Response Code:: Patient communicates acknowledgment Dyslipidemia Patient Dyslipidemia Risk Factors Are:: Total Cholesterol, Triglycerides, HDL, LDL Recommendations Include:: Lipid profile not available, Reviewed NCEP/ATP guidelines, Therapeutic Lifestyle Change dietary guidelines Dyslipidemia Response Code:: Patient communicates acknowledgment Overweight/Obesity Patient Overweight/Obesity Risk Factors Are:: Obesity - > or = 30 Recommendations Include:: Weight loss of 5-10%, Reduced calorie diet, Exercise 5-7 times/week Overweight/Obesity:: Patient communicates acknowledgment Hypertension Recommendations Include:: BP <130/80 if diabetic, DASH dietary guidelines, Decrease/maintain normal body weight, Moderation of ETOH Hypertension:: Patient communicates acknowledgment Diabetes Patient Diabetes Risk Factors Are:: Elevated blood sugars Recommendations Include:: Maintain fasting blood sugars 70-110 md/dL, Maintain HgbA1c of 6% or less, Monitor blood sugar as prescribed, Diabetic dietary guidelines, Decrease/maintain body weight Diabetes:: Patient communicates acknowledgment Sedentary Patient Sedentary Risk Factors Are:: Lack of regular exercise Recommendations Include:: Aerobic exercise 5-7 times/week for 20-30 minutes continuously, Benefits of regular exercise, Discussed home walking program, Monitored Outpatient Cardiac Rehab Sedentary Response Code:: Patient communicates acknowledgment Stress Recommendations Include:: Identification of stressors, and assessment of coping skills, Stress management techniques Stress Response Code:: Patient communicates acknowledgment
[2022-01-14 14:30] VITALS: BP 133/58; PULSE 62; RESP 16; TEMP 36.4; O2SAT 98
[2022-01-14 15:00] VITALS: PULSE 62
[2022-01-14 18:58] VITALS: PULSE 84
[2022-01-14 20:30] VITALS: BP 147/75; PULSE 73; RESP 16; TEMP 36.6; O2SAT 99
[2022-01-14] MEDS: TICAGRELOR 90 MG TABLET PO (21:11)
[2022-01-14] MEDS: Fenofibrate 145 MG Tablet PO (21:11)
[2022-01-14] MEDS: Atorvastatin Calcium 20 MG Tablet PO (21:12)
[2022-01-14] MEDS: Pantoprazole Sodium 40 MG Tablet PO (21:12)
[2022-01-14 21:26] LABS: Bedside Glucose 197 mg/dL (70-110)
[2022-01-15] VITALS (7 sets, daily range): BP systolic 117–154; BP diastolic 57–77; PULSE 56–70; RESP 16; TEMP 2.7–36.8; O2SAT 95–98
[2022-01-15 05:29] LABS: Hematocrit 35.1 % (40-54); Hemoglobin 11.4 g/dL (13.0-16.5); Mean Corp Hgb Conc 32.5 g/dL (32-36); Mean Corpuscular Hgb 25.6 pg (27.0-32.0); Mean Corpuscular Volume 78.9 fL (80-94); Mean Platelet Vol. 8.9 fl (6.2-12.0); Platelet Count 225 K/mm3 (150-450); RBC Distribution Width CV 13.6 % (11.6-14.6); RBC Distribution Width SD 38.6 fl (35.1-43.9); Red Blood Count 4.45 M/mm3 (4.6-6.2); White Blood Count 5.5 K/mm3 (4.4-11.0)
[2022-01-15 05:58] LABS: ALB/GLOB Ratio 1.1 RATIO (0.9-2.4); AST(SGOT) 27 U/L (15-37); Alanine Aminotransfer ALT/SGPT 30 U/L (16-61); Albumin, Serum 3.6 g/dL (3.2-5.0); Alkaline Phosphatase 60 U/L (45-117); Anion Gap 5 (5-15); BUN 22 mg/dL (7-18); BUN/Creat Ratio 17.7 RATIO (10-20); Calcium,Total 9.1 mg/dL (8.5-10.1); Chloride 108 mmol/L (98-107); Creatinine, Serum 1.24 mg/dL (0.70-1.30); EST Glomerular Filtration Rate 62 mL/min (>60); Est Glom Filt Rate - Afr Amer 74 mL/min (>60); Estimated Creatinine Clearance 60.73 ml/min; Globulin 3.2 g/dL (2.2-4.2); Glucose 100 mg/dL (74-106); Potassium 4.1 mmol/L (3.5-5.1); Protein, Total 6.8 g/dL (6.4-8.2); Sodium Level 138 mmol/L (136-145)
[2022-01-15] MEDS: Cholecalciferol (VIT D3) 25 MCG TABLET (1,000 UNITS) 125 MCG PO (08:28)
[2022-01-15] MEDS: Atorvastatin Calcium 20 MG Tablet PO (08:28)
[2022-01-15] MEDS: Aspirin E.C. 81 MG Tablet PO (08:28)
[2022-01-15] MEDS: Multivitamins,Ther W-Minerals Tablet 1 TABLET PO (08:28)
[2022-01-15] MEDS: Ramipril 2.5 MG Capsule PO (08:29)
[2022-01-15] MEDS: TICAGRELOR 90 MG TABLET PO (08:29)
[2022-01-15] MEDS: Glimepiride 4 MG Tablet PO (08:29)
[2022-01-15] MEDS: Vitamin E 400 UNITS Capsule PO (08:30)
[2022-01-15] MEDS: buPROPion (XL) 300 MG TABLET.XL PO (08:30)
--- NOTE | 2022-01-15 10:20 | PCM.DC ---
Discharge Instructions Follow Up Care Test Results: Test results from this visit will be discussed in further detail at your follow-up appointment, if applicable. Discharge Plan Admission Primary Reason for Your Visit: PCTA to OM1 and OM2 Attending Provider: Marli Odell Primary Care Provider: Talib Ferrara Instructions Additional Instructions / Restrictions: Do not lift anything greater than 10 lbs for 3 days. Follow your exercise instructions per Dr. Odell. You have an appt in the office in 02/04/2020 at 1030 with Isabella Mcdowell. This will be to update your history and physical for your next planned procedure. You will be called in the next few days with that date and time. After that we will refer you to cardiac rehab Your Plavix was switched to Brilinta, this is a twice a day medication. Decrease your Aspirin to 81 mg a day Discharge Orders/Prescriptions Prescriptions: New ticagrelor 90 mg tablet 90 mg PO BID Qty: 60 RF: 12 Continued pantoprazole 40 mg tablet,delayed release (DR/EC) 40 mg PO QHS RF: 0 ggiocccrjgmd-oazb-ymcav acid [Centrum] 18-400 mg-mcg tablet 1 tab PO QAM RF: 0 sildenafil 50 mg tablet 50 mg PO QDAY PRN (Reason: Cardiac/Chest Pain) RF: 0 cholecalciferol (vitamin D3) 2,000 unit capsule 5,000 unit PO DAILY RF: 0 nitroglycerin 0.4 mg tablet, sublingual 0.4 mg SUBLINGUAL Q5-15M PRN (Reason: chest pain) Qty: 25 RF: 3 bupropion HCl 300 mg tablet extended release 24 hr 300 mg PO QAM RF: 0 glimepiride 4 MG tablet 4 mg PO DAILY RF: 0 sertraline 100 MG tablet 100 mg PO QDAY RF: 0 vitamin E 100 UNIT capsule 100 unit PO DAILY RF: 0 Previgen 1 cap PO DAILY RF: 0 insulin glargine 100 unit/mL (3 mL) insulin pen 16 unit SC QHS RF: 0 metformin 1,000 mg tablet 1,000 mg PO BID Qty: 0 RF: 0 ramipril 2.5 mg capsule 2.5 mg PO DAILY Qty: 90 RF: 3 fenofibrate nanocrystallized 145 mg tablet 145 mg PO QHS Qty: 90 RF: 3 Changed atorvastatin 20 MG tablet 40 mg PO DAILY Qty: 0 RF: 0 aspirin 325 MG tablet 81 mg PO DAILY@0800 Qty: 0 RF: 0 Discontinued clopidogrel 75 MG tablet 75 mg PO DAILY RF: 0 Referrals / Follow Up: Talib Ferrara DO [Primary Care Provider] - Disposition Disposition (needs filled in before D/C Order can be placed): Home, Self Care
--- NOTE | 2022-01-15 10:44 | CASEMGMT ---
Addendum entered by Eri Wooten 01/15/22 11:20: Call from Diane in [facility] retail pharmacy and she states pt's co-pay is $304.10, which is likely deductible and Brilinta month free trial card applied. Pt updated on all, voices understanding. Zainab CORREA CM Original Note: Brilinta e-scribed to [facility] pharmacy and Shirley valadez to call this SUNNY FARRAR back with co-pay and apply Brilinta coupon card. CM to follow. Zainab CORREA CM
--- NOTE | 2022-01-15 12:45 | EKG12_ITS ---
Test Reason : PCI Blood Pressure : / mmHG Vent. Rate : 061 BPM Atrial Rate : 061 BPM P-R Int : 220 ms QRS Dur : 098 ms QT Int : 406 ms P-R-T Axes : 056 029 036 degrees QTc Int : 408 ms Sinus rhythm with 1st degree A-V block Otherwise normal ECG When compared with ECG of 19-NOV-2017 09:45, No significant change was found Confirmed by FRANKLIN ALVAREZ, TODD ([id number]), editorial project manager LUZ AZUL ([id number]) on 01/15/2022 1:41:08 PM Referred By: Marli Odell Confirmed By:MAGALI ODELL MD
== END 2022-01-15 10:37 | disposition home or self-care (01) ==
LOC: CLSP 09:05 → PCU 16:06
PROVIDERS: Internal Medicine Cardiovascular Disease; PCP Family Medicine; Referring Provider Specialist; Visit Provider Specialist
DX: I25.110 Atherosclerotic heart disease of native coronary artery with unstable angina pectoris (principal); E11.9 Type 2 diabetes mellitus without complications; I10 Essential (primary) hypertension; E78.5 Hyperlipidemia, unspecified; E66.9 Obesity, unspecified; Z79.4 Long term (current) use of insulin; Z79.02 Long term (current) use of antithrombotics/antiplatelets; Z79.899 Other long term (current) drug therapy; Z87.891 Personal history of nicotine dependence; Z95.5 Presence of coronary angioplasty implant and graft
CPT/HCPCS: 36415; 80048; 80053; 82962; 85027; 92920; 92921; 93005; 99152; 99153; J7040; Q9967; C1725; C1769; C1887; C1894

== ENCOUNTER 2022-02-11 09:15 | Day surgery (SDC) | payer MEDICARE, SELFPAY ==
[2022-01-22 10:52] LABS: Absolute Lymphocyte Count 1.15 X10^3/uL (0.83-4.51); Absolute Neutrophil Count 4.2 X10^3/uL (2.0-7.7); Basophil# 0.06 X10^3/uL; Eosinophil# 0.22 X10^3/uL; Eosinophils% 3.6 % (0-5); Hematocrit 38.1 % (40-54); Hemoglobin 12.1 g/dL (13.0-16.5); Lymphocyte # 1.15 X10^3/ul (0.83-4.51); Lymphocyte % 18.6 % (19-41); Mean Corp Hgb Conc 31.8 g/dL (32-36); Mean Corpuscular Hgb 24.9 pg (27.0-32.0); Mean Corpuscular Volume 78.6 fL (80-94); Mean Platelet Vol. 9.2 fl (6.2-12.0); Monocyte# 0.49 X10^3/uL; Monocyte% 7.9 % (0-10); NRBC Flagged by Analyzer 0 % (0-5); Neutrophil # 4.24 X10^3/uL (2.7-7.7); Neutrophil % 68.4 % (47-70); Platelet Count 260 K/mm3 (150-450); RBC Distribution Width SD 39.4 fl (35.1-43.9); Red Blood Count 4.85 M/mm3 (4.6-6.2); White Blood Count 6.2 K/mm3 (4.4-11.0)
[2022-01-22 11:23] LABS: Anion Gap 4 (5-15); BUN 20 mg/dL (7-18); BUN/Creat Ratio 13.5 RATIO (10-20); Calcium,Total 9.7 mg/dL (8.5-10.1); Chloride 107 mmol/L (98-107); Creatinine, Serum 1.48 mg/dL (0.70-1.30); EST Glomerular Filtration Rate 50 mL/min (>60); Est Glom Filt Rate - Afr Amer 61 mL/min (>60); Glucose 103 mg/dL (74-106); Potassium 4.8 mmol/L (3.5-5.1); Sodium Level 135 mmol/L (136-145)
[2022-02-10 08:00] VITALS: BMI 30.4
[2022-02-11] VITALS (7 sets, daily range): BP systolic 158–179; BP diastolic 59–67; PULSE 67–85; RESP 16–18; TEMP 36.5–36.8; O2SAT 96–98; BMI 29.5
--- NOTE | 2022-02-11 11:00 | EKG12_ITS ---
Test Reason : AM EKG Blood Pressure : / mmHG Vent. Rate : 062 BPM Atrial Rate : 062 BPM P-R Int : 208 ms QRS Dur : 096 ms QT Int : 412 ms P-R-T Axes : 057 033 031 degrees QTc Int : 418 ms Normal sinus rhythm Normal ECG When compared with ECG of 11-FEB-2022 13:46, MANUAL COMPARISON REQUIRED, DATA IS UNCONFIRMED Confirmed by FRANKLIN ALVAREZ, TODD ([id number]), deputy editor in chief LUZ AZUL ([id number]) on 02/12/2022 1:39:16 PM Referred By: Marli Odell Confirmed By:MAGALI ODELL MD
--- NOTE | 2022-02-11 11:09 | CL.I_ITS ---
Patient Name: CECELIA BENZ Study Date: 02/11/2022 Performing: Rush Odell MD Ht: 70.86 inches 180 cm : 1955 Wt: 218.26 lbs 99 kg Age: 66 Gender: male BSA: 2.19 PROCEDURE(S) PERFORMED IC12-(50515/C9600)SEAMUS W/WO PTCA, SINGLE CORONARY ARTERY CLINICAL PROFILE AND CO-MORBIDITIES Indications: staged PCI of LAD Heart Failure: None CONCLUSIONS Successful PCI with SEAMUS to mLAD RECOMMENDATIONS DESCRIPTION OF PROCEDURE The patient arrived to the procedure lab. The risks and benefits of the procedure as well as a full d escription of our services here and current unavailability of surgical backup were fully explained to the patient and/or their significant other prior to the catheterization. The Timeout was completed, verifying the correct patient and procedure. The patient's procedural site was prepped and draped in the usual fashion. Local anesthetic was given subcutaneously to right radial region with Lidocaine 2% . Using a modified Seldinger technique, arterial access was obtained via the right radial artery, a 6 Fr sheath was inserted.. XB 3.0 Guide catheter was inserted and engaged into the LCA. [employer] [place] Guide wire was advance d to the LAD. Emerge 2.5 x 12 Balloon catheter was inserted. Balloon catheter was advanced across les ion in the LAD, mid. PTCA balloon inflated at 12 atms for 31 secs. Angiogram performed post balloon d ilatation. Orsiro 3.0 x 26 Drug Eluting stent was inserted. Drug Eluting stent was advanced across th e lesion in the LAD, mid. Angiogram performed pre stent deployment. Angiogram performed post stent de ployment. NC Emerge 3.0 x 15 Balloon catheter was inserted. Balloon catheter was advanced across lesi on in the LAD, mid. Angiogram performed pre balloon dilatation. Angiogram performed post balloon dila tation. The arterial sheath was pulled and a TR Band was applied for hemostasis INTERVENTION INFORMATION LESION SITE: LAD (Mid) Lesion Complexity: High/C, chronic total occlusion: No, lesion at bifurcation: Yes, thrombus present: No, lesion length: 25 mm, culprit lesion: Yes, Previously treated lesion: No Pre Stenosis: 80 % Pre intervention LUZ ELENA flow: 3 PROCEDURE: Drug Eluting Stent with pre and post dilatation Post Stenosis: 0 % Post intervention LUZ ELENA flow: 3 Lesion Devices: Zelaya .014 [employer] [place] Straight 190cm Cardinal 6 Fr XB3.0 100cm Guide Catheter Terrell Sci EMERGE MR 2.50x12 BALLOON Biotronik Orsiro [place] MR SEAMUS 3.0x26 Terrell Sci NC EMERGE MR 3.00x15 BALLOON COMPLICATIONS No Complications PROCEDURE MEDICATIONS Fentanyl 50 mcg IV Versed 1 mg IV Oxygen: 2 L/min via nasal cannula Heparin given IA 02/11/2022 10:14:10 Heparin 5000 unit(s) IV 02/11/2022 10:16:35 Verapamil 2.5mg, Ntg 100mcgs, 3000 units of Heparin given IA 02/11/2022 10:14:10 SUMMARY OF HEMODYNAMIC DATA Time AIR REST ECG 09:34:43 ECG 09:58:25 AO 106/51 (77) SA 10:14:06 Signed By Rush Odell MD On 02/11/2022 11:08:25 Rush Odell MD
--- NOTE | 2022-02-11 12:51 | CRPHASE1 ---
Patient Communication Former Patient:: Phase I PHII Cardiac Rehab Discussed with Patient:: Yes Guide to Cardiac Rehab Given to Patient:: No - Pt received during last admission. Cardiac Rehab Facility Choice List Given to Patient:: No - Pt received during last admission. Choice Program [facility] CR PHII:: Communication Given to CR Control Clerk Repairs:: Marli Odell Refer Phase II Cardiac Rehab:: Yes Sessions:: 36 sessions - 3 days/wk, 12 weeks Cardiac Rehabilitation Info Cardiac Rehabilitation Program Information: Cardiac Rehabilitation is important for patients like you who are recovering from a heart problem. Cardiac rehabilitation programs are recognized as integral to the continued care of the patient with coronary heart disease. The cardiac rehabilitation program is designed to optimize a patient's physical, psychological, and social functioning. Health customer care manager work in cardiac rehabilitation programs and assist you with getting the treatments you need to get stronger and healthier - like exercise, healthy eating habits, and medications. Cardiac rehabilitation has been show to help people with heart problems live longer and have better life enjoyment than people who do not go to cardiac rehabilitation. Please contact the Cardiac Rehabilitation Program at [facility] at in two weeks if you have not heard from them.
--- NOTE | 2022-02-11 12:52 | CRPH1.INST_ITS ---
General Education CAD and cardiac anatomy and function:: Patient communicates acknowledgment, Family communicates acknowledgment Explanation of diagnoses and procedures:: Patient communicates acknowledgment, Family communicates acknowledgment Sign/Symptoms of [place]:: Patient communicates acknowledgment, Family communicates acknowledgment Antiplatelet therapy: Patient communicates acknowledgment, Family communicates acknowledgment Proper use of NTG-SL: Patient communicates acknowledgment, Family communicates acknowledgment Emergency procedures and activation of EMS: Patient communicates acknowledgment, Family communicates acknowledgment Compliance of all prescribed medications: Patient communicates acknowledgment, Family communicates acknowledgment Smoking Patient Nicotine/Smoking Risk Factors Are:: Non-smoker Recommendations Include:: Previous smoker; encourage continued cessation Nicotine/Smoking Response Code:: Patient communicates acknowledgment, Family communicates acknowledgment Dyslipidemia Patient Dyslipidemia Risk Factors Are:: Total Cholesterol, Triglycerides, HDL, LDL Recommendations Include:: Lipid profile not available, Reviewed NCEP/ATP guidelines, Therapeutic Lifestyle Change dietary guidelines Dyslipidemia Response Code:: Patient communicates acknowledgment, Family communicates acknowledgment Overweight/Obesity Patient Overweight/Obesity Risk Factors Are:: Obesity - > or = 30 Recommendations Include:: Weight loss of 5-10%, Reduced calorie diet, Exercise 5-7 times/week Overweight/Obesity:: Patient communicates acknowledgment, Family communicates acknowledgment Hypertension Recommendations Include:: BP <130/80 if diabetic, DASH dietary guidelines, D ecrease/maintain normal body weight Hypertension:: Family communicates acknowledgment Heart Disease Patient Heart Disease Risk Factors Are:: Previous cardiac event Recommendations Include:: Educated family members of their risk Heart Disease Response Code:: Patient communicates acknowledgment, Family communicates acknowledgment Diabetes Patient Diabetes Risk Factors Are:: Elevated blood sugars Recommendations Include:: Maintain fasting blood sugars 70-110 md/dL, Maintain HgbA1c of 6% or less, Monitor blood sugar as prescribed, Diabetic dietary guidelines, Decrease/maintain body weight Diabetes:: Patient communicates acknowledgment, Family communicates acknowledgment Sedentary Patient Sedentary Risk Factors Are:: Lack of regular exercise Recommendations Include:: Aerobic exercise 5-7 times/week for 20-30 minutes continuously, Benefits of regular exercise, Discussed home walking program, Monitored Outpatient Cardiac Rehab Sedentary Response Code:: Patient communicates acknowledgment, Family communicates acknowledgment Stress Recommendations Include:: Identification of stressors, and assessment of coping skills, Stress management techniques Stress Response Code:: Patient communicates acknowledgment, Family communicates acknowledgment
[2022-02-11] MEDS: 0.9% Normal Saline 1,000 ML 60 ML IV ×2 (14:00→16:43)
--- NOTE | 2022-02-11 14:20 | NURSING ---
1350-pt to floor with slowly progressing spot drng obs to rt wrist. per mobile home laborer junito pt with oozing and had done manual pressure that edned at 1325 but that still had some slow oozing hot metal charger aware and in with this rn and drsg changed to rt wrist with 4x4 folded and new opsite. pt encouraged to call if any red at all noted on gauze drsg and to not use rt arm at all today
[2022-02-11 16:41] LABS: Bedside Glucose 205 mg/dL (74-106)
[2022-02-11] MEDS: TICAGRELOR 90 MG TABLET PO (22:16)
[2022-02-11] MEDS: Fenofibrate 145 MG Tablet PO (22:18)
[2022-02-11] MEDS: Pantoprazole Sodium 40 MG Tablet PO (22:18)
[2022-02-11] MEDS: Atorvastatin Calcium 40 MG Tablet PO (22:18)
[2022-02-11 23:31] LABS: Bedside Glucose 184 mg/dL (74-106)
[2022-02-12 03:00] VITALS: PULSE 61
[2022-02-12 03:25] VITALS: BP 172/63; PULSE 65; RESP 16; TEMP 37.3; O2SAT 98
[2022-02-12 03:55] VITALS: BP 136/50
[2022-02-12 06:18] LABS: Hematocrit 34.2 % (40-54); Hemoglobin 10.9 g/dL (13.0-16.5); Mean Corp Hgb Conc 31.9 g/dL (32-36); Mean Corpuscular Hgb 24.2 pg (27.0-32.0); Mean Corpuscular Volume 75.8 fL (80-94); Mean Platelet Vol. 8.8 fl (6.2-12.0); Platelet Count 177 K/mm3 (150-450); RBC Distribution Width CV 14.5 % (11.6-14.6); RBC Distribution Width SD 39.2 fl (35.1-43.9); Red Blood Count 4.51 M/mm3 (4.6-6.2); White Blood Count 5.1 K/mm3 (4.4-11.0)
[2022-02-12 06:49] LABS: ALB/GLOB Ratio 1.1 RATIO (0.9-2.4); AST(SGOT) 23 U/L (15-37); Alanine Aminotransfer ALT/SGPT 25 U/L (16-61); Albumin, Serum 3.5 g/dL (3.2-5.0); Alkaline Phosphatase 55 U/L (45-117); Anion Gap 5 (5-15); BUN 21 mg/dL (7-18); BUN/Creat Ratio 17.2 RATIO (10-20); Calcium,Total 9.1 mg/dL (8.5-10.1); Chloride 111 mmol/L (98-107); Creatinine, Serum 1.22 mg/dL (0.70-1.30); EST Glomerular Filtration Rate 63 mL/min (>60); Est Glom Filt Rate - Afr Amer 76 mL/min (>60); Estimated Creatinine Clearance 59.84 ml/min; Globulin 3.1 g/dL (2.2-4.2); Glucose 114 mg/dL (74-106); Protein, Total 6.6 g/dL (6.4-8.2); Sodium Level 141 mmol/L (136-145)
[2022-02-12 07:28] VITALS: O2SAT 96
[2022-02-12 07:35] VITALS: PULSE 64
--- NOTE | 2022-02-12 08:17 | PCM.PN.CARD ---
Subjective Subjective Seen and evaluated. Appears to be doing well. No complaints. Objective Data Vital Signs: Vital Signs Temp Pulse Resp BP Pulse Ox 99.2 F H 64 16 136/50 H 96 02/12/22 03:25 02/12/22 07:35 02/12/22 03:25 02/12/22 03:55 02/12/22 07:28 Oxygen Delivery Method Room Air Weight: 202 lb 6.15 oz Body Mass Index (BMI) 29.5 Intake & Output: Intake and Output for Last 24 Hours 02/10/22 02/11/22 02/12/22 23:59 23:59 23:59 Intake Total 643 / 1603 1484 / 1484 Balance 643 / 1603 1484 / 1484 Lab / Micro Data Result Diagrams: 02/12/22 04:43 02/12/22 04:43 Labs: Laboratory Results - last 24 hr 02/11/22 16:24: POC Glucose 205 H 02/11/22 22:14: POC Glucose 184 H 02/12/22 04:43: WBC 5.1, RBC 4.51 L, Hgb 10.9 L, Hct 34.2 L, MCV 75.8 L, MCH 24.2 L, MCHC 31.9 L, RDW Std Deviation 39.2, RDW Coeff of Finesse 14.5, Plt Count 177, MPV 8.8 02/12/22 04:43: Sodium 141, Potassium 4.0, Chloride 111 H, Carbon Dioxide 25.0, Anion Gap 5, BUN 21 H, Creatinine 1.22, Estim Creat Clear Calc 59.84, Est GFR (MDRD) Af Amer 76, Est GFR (MDRD) Non-Af 63, BUN/Creatinine Ratio 17.2, Glucose 114 H, Calcium 9.1, Total Bilirubin 0.30, AST 23, ALT 25, Alkaline Phosphatase 55, Total Protein 6.6, Albumin 3.5, Globulin 3.1, Albumin/Globulin Ratio 1.1 Cardiology Labs/Tests 02/12/22 04:43: WBC 5.1, RBC 4.51 L, Hgb 10.9 L, Hct 34.2 L, MCV 75.8 L, MCH 24.2 L, MCHC 31.9 L, Plt Count 177, MPV 8.8 02/12/22 04:43: Sodium 141, Potassium 4.0, Chloride 111 H, Carbon Dioxide 25.0, Anion Gap 5, BUN 21 H, Creatinine 1.22, Est GFR (MDRD) Af Amer 76, Est GFR (MDRD) Non-Af 63, BUN/Creatinine Ratio 17.2, Glucose 114 H, Calcium 9.1, Total Bilirubin 0.30 Rhythm: EKG: ECHO: Stress Test: Cardiac Cath: PCI: CT Surgery: Holter monitor: EPS: PPM: CXR: Chest CT Scan: Assessment & Plan Assessment/Plan (1) History of coronary artery stent placement: PLAN: He is status post angioplasty and stent placement of the left anterior descending artery. He appears to be doing well. He will be discharged on his current medications for outpatient follow-up in cardiac rehabilitation.
--- NOTE | 2022-02-12 08:21 | PCM.DC ---
Discharge Instructions Diet Discharge Diet: No restrictions (You may continue your normal diet.) Activity Lifting Restrictions: 10 pounds and also avoid any pushing or pulling for 3 days after your test. Additional Activity Instructions:: You must have someone drive you home. Do not drive until instructed by your doctor. You must have someone stay with you all night after your test. Rest in bed or on the couch until the next morning. Limit the number of times you go up and down stairs the day of your test. Apply pressure to the puncture site if you sneeze or cough. Dressing / Incision Call your doctor if your incision/area has: Increased Pain/ Swelling, Increased Redness, Foul Smelling Discharge and Swelling at the incision site Call your doctor if you observe: Fever of 101 or Higher Additional Dressing/Incision Instructions:: Keep the dressing (bandage) on until the next morning. You may then shower, but do not take a tub bath for 5 days after your test. It is normal to have some tenderness and discomfort at the puncture site. Sometimes bruising also occurs. However, if pain, numbness, or coldness occurs below the puncture site (in your leg, toes, arms or fingers) call your doctor at once. You may have a small, marble sized knot at the puncture site. This is normal. Do not rub it. It will go away in 4-6 weeks. Bleeding can occur from the area where the puncture was done. Blood may spurt or drip from the site. If blood spurts, apply pressure right away to stop bleeding and call 911. Although rare, bleeding into the tissue (hematoma) can also occur. If this happens, a large, firm area goose egg under the skin will appear. If any of these occur, lie down as flat as you can and have someone apply firm pressure to the cath site with a gauze pad or a clean washcloth for 10-15 minutes. Call 911 or go to the Emergency Department. Follow Up Care Test Results: Test results from this visit will be discussed in further detail at your follow-up appointment, if applicable. Discharge Plan Admission Attending Provider: Marli Odell Primary Care Provider: Talib Ferrara Consulting Providers: Mark Duque ; Isabella Mcdowell Discharge Orders/Prescriptions Prescriptions: No Action pantoprazole 40 mg tablet,delayed release (DR/EC) 40 mg PO QHS RF: 0 yubrdlsiyxcr-kgqc-uigim acid [Centrum] 18-400 mg-mcg tablet 1 tab PO QAM RF: 0 sildenafil 50 mg tablet 50 mg PO QDAY PRN (Reason: Cardiac/Chest Pain) RF: 0 cholecalciferol (vitamin D3) 2,000 unit capsule 5,000 unit PO DAILY RF: 0 nitroglycerin 0.4 mg tablet, sublingual 0.4 mg SUBLINGUAL Q5-15M PRN (Reason: chest pain) Qty: 25 RF: 3 bupropion HCl 300 mg tablet extended release 24 hr 300 mg PO QAM RF: 0 atorvastatin 20 mg tablet 40 mg PO QHS RF: 0 aspirin [Adult Aspirin Regimen] 81 mg tablet,delayed release (DR/EC) 81 mg PO DAILY RF: 0 glimepiride 4 MG tablet 4 mg PO DAILY RF: 0 sertraline 100 MG tablet 100 mg PO QDAY RF: 0 vitamin E 100 UNIT capsule 100 unit PO DAILY RF: 0 Previgen 1 cap PO DAILY RF: 0 insulin glargine 100 unit/mL (3 mL) insulin pen 16 unit SC QHS RF: 0 metformin 1,000 mg tablet 1,000 mg PO BID Qty: 0 RF: 0 ramipril 2.5 mg capsule 2.5 mg PO DAILY Qty: 90 RF: 3 fenofibrate nanocrystallized 145 mg tablet 145 mg PO QHS Qty: 90 RF: 3 ticagrelor 90 mg tablet 90 mg PO BID Qty: 60 RF: 12 Referrals / Follow Up: Talib Ferrara DO [Primary Care Provider] - Disposition Disposition (needs filled in before D/C Order can be placed): Home, Self Care
[2022-02-12 09:15] VITALS: BP 122/67; PULSE 67; RESP 16; TEMP 36.5; O2SAT 100
[2022-02-12] MEDS: TICAGRELOR 90 MG TABLET PO (09:18)
[2022-02-12] MEDS: Glimepiride 4 MG Tablet PO (09:18)
[2022-02-12] MEDS: buPROPion (XL) 300 MG TABLET.XL PO (09:18)
[2022-02-12] MEDS: Ramipril 2.5 MG Capsule PO (09:18)
[2022-02-12] MEDS: Aspirin E.C. 81 MG Tablet PO (09:18)
[2022-02-12] MEDS: Sertraline 100 MG Tablet PO (09:18)
--- NOTE | 2022-02-12 10:00 | EKG12_ITS ---
Test Reason : POST PCI Blood Pressure : / mmHG Vent. Rate : 069 BPM Atrial Rate : 069 BPM P-R Int : 210 ms QRS Dur : 096 ms QT Int : 400 ms P-R-T Axes : 050 031 044 degrees QTc Int : 428 ms Sinus rhythm with 1st degree A-V block Otherwise normal ECG When compared with ECG of 15-JAN-2022 05:06, No significant change was found Confirmed by FRANKLIN ALVAREZ, TODD ([id number]), editorial writer LUZ AZUL ([id number]) on 02/12/2022 1:40:17 PM Referred By: Marli Odell Confirmed By:MAGALI ODELL MD
== END 2022-02-12 08:20 | disposition home or self-care (01) ==
LOC: CLSP 09:21 → PCU 02-12 08:21
PROVIDERS: Internal Medicine Cardiovascular Disease; PCP Family Medicine; Referring Provider Specialist; Visit Provider Specialist
DX: I25.10 Atherosclerotic heart disease of native coronary artery without angina pectoris (principal); E11.9 Type 2 diabetes mellitus without complications; Z79.4 Long term (current) use of insulin; I10 Essential (primary) hypertension; E78.5 Hyperlipidemia, unspecified; R06.02 Shortness of breath; Z79.899 Other long term (current) drug therapy; Z79.02 Long term (current) use of antithrombotics/antiplatelets; Z79.82 Long term (current) use of aspirin; Z86.16 Personal history of COVID-19; E66.9 Obesity, unspecified; Z87.891 Personal history of nicotine dependence; Z68.29 Body mass index [BMI] 29.0-29.9, adult
CPT/HCPCS: 36415; 80048; 80053; 82962; 85025; 85027; 92928; 93005; 99152; 99153; C1874; J7030; J7040; C1725; C1769; C1887; C1894; C9600; Q9967

== ENCOUNTER 2022-02-16 16:57 | Outpatient (CLI) | payer MEDICARE, SELFPAY ==
--- NOTE | 2022-02-16 10:45 | CYSPIN_PTH ---
PATIENT: CECELIA BENZ LOC: [facility] U#:[id number] AGE/SX: 66/M ROOM: RE02/16/[address]: Dr. Ze Saab MD : 1955 BED: DIS: 02/16/2022 SPEC #: [id number] RECD: 02/17/22 07:25 STATUS: NOE REEdinson #: [id number] LETA: 02/16/22 10:[address]: Ze Saab DEPT: CYTOLOGY RECD BY: Felicity Mullins ENTERED: 02/17/22 07:26 SP TYPE: CYSPIN FL OTHR DR: Dr. Talib Ferrara, DO Tissues: Urine Procedures: Pap Stain (control) Special Stain Group II Cytospin Fluid HEADER OPERATION: Not noted PRE-OP DIAGNOSIS: History of malignant neoplasm of bladder TISSUE SUBMITTED: Urine for cytology DIAGNOSIS CYTOLOGY Urine for cytology (cytospin): A few atypical urothelial cells in clusters with mild atypia noted. Mild acute inflammation. SJ:marsha 02/17/2022 COMMENT Please make reference to previous specimens ([id number]) urine for cytology with diagnosis of ?atypical urothelial cells in clusters consistent with urothelial carcinoma? and ([id number]) bladder, biopsy with diagnosis of ?fragments of urothelial mucosa with mild epithelial hyperplasia and atypia.? Case has been reviewed in consultation with Dr. Rivera who concurs with the above diagnosis. IDC:AM CYTOLOGY STUDY Slides are reviewed. CYTOLOGY GROSS Received is 60 ml of clear gold fluid labeled with the patient's name and and designated per the requisition as urine. Submitted for cytology preparation. / marsha 02/16/2022 TC:2 CPT: 22109
[2022-02-16 17:16] LABS: Cytology, Body Fluid / CSF SEE PATHOLOGY REPORT
== END 2022-02-16 23:59 | disposition home or self-care (01) ==
LOC: LABSPEC 16:59
PROVIDERS: PCP Family Medicine; Referring Provider Urology; Visit Provider Urology
DX: Z85.51 Personal history of malignant neoplasm of bladder (principal)
CPT/HCPCS: 88108; 88313

== ENCOUNTER 2022-02-24 13:00 | Outpatient (RCR) | payer MEDICARE, SELFPAY | END 2022-02-26 23:59 | LOC: DC 13:00 | PROVIDERS: PCP Family Medicine; Visit Provider Physician Assistant Medical | DX: I25.10 Atherosclerotic heart disease of native coronary artery without angina pectoris (principal); I10 Essential (primary) hypertension; E78.5 Hyperlipidemia, unspecified; E11.9 Type 2 diabetes mellitus without complications | CPT/HCPCS: 97802; 97803 ==

== ENCOUNTER 2022-03-19 08:30 | Outpatient (RCR) | payer MEDICARE, SELFPAY | END 2022-03-28 23:59 | LOC: DC 08:30 | PROVIDERS: PCP Family Medicine; Referring Provider Physician Assistant Medical; Visit Provider Physician Assistant Medical | DX: I25.10 Atherosclerotic heart disease of native coronary artery without angina pectoris (principal); I10 Essential (primary) hypertension; E11.9 Type 2 diabetes mellitus without complications; E78.5 Hyperlipidemia, unspecified | CPT/HCPCS: 97803; G0108 ==

== ENCOUNTER 2022-04-02 09:30 | Outpatient (RCR) | payer MEDICARE, SELFPAY | END 2022-04-28 23:59 | LOC: DC 09:30 | PROVIDERS: PCP Family Medicine; Referring Provider Physician Assistant Medical; Visit Provider Physician Assistant Medical | DX: I25.10 Atherosclerotic heart disease of native coronary artery without angina pectoris (principal); I10 Essential (primary) hypertension; E11.9 Type 2 diabetes mellitus without complications; E78.5 Hyperlipidemia, unspecified | CPT/HCPCS: G0108; G0109 ==

== ENCOUNTER 2022-04-30 16:09 | Outpatient (RCR) | payer MEDICARE, SELFPAY | END 2022-05-28 23:59 | LOC: DC 16:09 | PROVIDERS: PCP Family Medicine; Referring Provider Physician Assistant Medical; Visit Provider Physician Assistant Medical | DX: I25.10 Atherosclerotic heart disease of native coronary artery without angina pectoris (principal); I10 Essential (primary) hypertension; E11.9 Type 2 diabetes mellitus without complications; E78.5 Hyperlipidemia, unspecified | CPT/HCPCS: G0109 ==

== ENCOUNTER 2022-06-11 10:21 | Outpatient (RCR) | payer MEDICARE, SELFPAY | END 2022-06-28 23:59 | LOC: DC 10:21 | PROVIDERS: PCP Family Medicine; Referring Provider Physician Assistant Medical; Visit Provider Physician Assistant Medical | DX: E11.9 Type 2 diabetes mellitus without complications (principal); I25.10 Atherosclerotic heart disease of native coronary artery without angina pectoris; I10 Essential (primary) hypertension; E78.5 Hyperlipidemia, unspecified | CPT/HCPCS: G0109 ==

== ENCOUNTER 2022-07-02 12:09 | Outpatient (RCR) | payer MEDICARE, SELFPAY | END 2022-07-29 23:59 | LOC: DC 12:09 | PROVIDERS: PCP Family Medicine; Referring Provider Physician Assistant Medical; Visit Provider Physician Assistant Medical | DX: E11.9 Type 2 diabetes mellitus without complications (principal); I25.10 Atherosclerotic heart disease of native coronary artery without angina pectoris; I10 Essential (primary) hypertension; E78.5 Hyperlipidemia, unspecified ==

== ENCOUNTER → 2022-07-24 | Outpatient (CLI) | payer MEDICARE, SELFPAY ==
[2022-07-24 10:20] LABS: Absolute Lymphocyte Count 0.99 X10^3/uL (0.83-4.51); Absolute Neutrophil Count 3.3 X10^3/uL (2.0-7.7); Basophil# 0.04 X10^3/uL; Basophil% 0.8 % (0-1); Eosinophil# 0.15 X10^3/uL; Hematocrit 40.6 % (40-54); Lymphocyte # 0.99 X10^3/ul (0.83-4.51); Lymphocyte % 20.1 % (19-41); Mean Corpuscular Hgb 28.3 pg (27.0-32.0); Mean Corpuscular Volume 88.3 fL (80-94); Mean Platelet Vol. 8.9 fl (6.2-12.0); Monocyte# 0.39 X10^3/uL; Monocyte% 7.9 % (0-10); NRBC Flagged by Analyzer 0 % (0-5); Neutrophil # 3.33 X10^3/uL (2.7-7.7); Neutrophil % 67.6 % (47-70); Platelet Count 180 K/mm3 (150-450); RBC Distribution Width CV 16.9 % (11.6-14.6); RBC Distribution Width SD 54.1 fl (35.1-43.9); White Blood Count 4.9 K/mm3 (4.4-11.0)
[2022-07-24 10:42] LABS: ALB/GLOB Ratio 1.2 RATIO (0.9-2.4); AST(SGOT) 31 U/L (15-37); Alanine Aminotransfer ALT/SGPT 38 U/L (16-61); Albumin, Serum 3.6 g/dL (3.2-5.0); Alkaline Phosphatase 85 U/L (45-117); Anion Gap 3 (5-15); BUN 27 mg/dL (7-18); BUN/Creat Ratio 19.6 RATIO (10-20); Chloride 108 mmol/L (98-107); Cholesterol 157 mg/dL (200); Creatinine, Serum 1.38 mg/dL (0.70-1.30); EST Glomerular Filtration Rate 54 mL/min (>60); Est Glom Filt Rate - Afr Amer 66 mL/min (>60); Globulin 3.1 g/dL (2.2-4.2); Glucose 131 mg/dL (74-106); High Density Lipoprotein 49 mg/dL; PSA,Total - Annual Screen 2.68 ng/mL (0.00-4.00); Potassium 4.5 mmol/L (3.5-5.1); Protein, Total 6.7 g/dL (6.4-8.2); Sodium Level 139 mmol/L (136-145); Triglycerides 117 mg/dL; Very Low Density Lipoprotein 23 mg/dL (5-40)
[2022-07-24 11:04] LABS: Microalbumin,Random Urine < 5.0 mg/L (NO RANGE EST.)
== END | disposition home or self-care (01) ==
LOC: MTLAB 08:50
PROVIDERS: PCP Family Medicine; Referring Provider Family Medicine; Visit Provider Family Medicine
DX: I25.10 Atherosclerotic heart disease of native coronary artery without angina pectoris (principal); E11.29 Type 2 diabetes mellitus with other diabetic kidney complication; I10 Essential (primary) hypertension; Z12.5 Encounter for screening for malignant neoplasm of prostate
CPT/HCPCS: 36415; 80053; 80061; 82043; 82570; 83036; 84153; 85025; G0103

== ENCOUNTER → 2023-01-15 | Outpatient (CLI) | payer MEDICARE, SELFPAY ==
--- NOTE | 2023-01-15 14:54 | RAD_ITS ---
STUDY: X-RAY - PELVIS AND RIGHT HIP REASON FOR EXAM: Male, 67 years old. Pain. TECHNIQUE: 3 views of the pelvis and hip. COMPARISON: None. FINDINGS: There is a non-specific bowel gas pattern. Normal visualized soft tissue structures. Normal bilateral iliac wings, sacroiliac joints and visualized sacrum. Normal bilateral superior and inferior pubic rami. Arthrosis of the symphysis pubis. Normal bilateral ischial tuberosities. Right total hip arthroplasty in anatomic alignment with no complicating features. Mild arthrosis of the left hip. RAD/HIP, UNI W/ Pelvis 2-3 Views IMPRESSION: Uncomplicated right total hip arthroplasty. Mild arthrosis of the symphysis pubis and left hip. No acute abnormality. Electronically Signed: Seferino Franklin, at 10:12 EST ,
== END | disposition home or self-care (01) ==
LOC: MTRAD 14:53
PROVIDERS: PCP Family Medicine; Referring Provider Family Medicine; Visit Provider Family Medicine
DX: M25.551 Pain in right hip (principal)
CPT/HCPCS: 73502

== ENCOUNTER → 2023-04-20 | Outpatient (CLI) | payer MEDICARE, SELFPAY ==
[2023-04-20 11:01] LABS: AST(SGOT) 39 U/L (15-37); Alanine Aminotransfer ALT/SGPT 38 U/L (16-61); Albumin, Serum 3.5 g/dL (3.2-5.0); Alkaline Phosphatase 76 U/L (45-117); Bilirubin, Direct 0.18 mg/dL (0.00-0.30); Cholesterol 163 mg/dL (200); Globulin 3.2 g/dL (2.2-4.2); High Density Lipoprotein 48 mg/dL; Protein, Total 6.7 g/dL (6.4-8.2); Triglycerides 172 mg/dL; Very Low Density Lipoprotein 34 mg/dL (5-40)
== END | disposition home or self-care (01) ==
LOC: MTLAB 07:14
PROVIDERS: PCP Family Medicine; Referring Provider Internal Medicine Cardiovascular Disease; Visit Provider Internal Medicine Cardiovascular Disease
DX: E78.5 Hyperlipidemia, unspecified (principal); I25.10 Atherosclerotic heart disease of native coronary artery without angina pectoris
CPT/HCPCS: 36415; 80061; 80076

== ENCOUNTER → 2023-05-10 | Outpatient (CLI) | payer MEDICARE, SELFPAY ==
--- NOTE | 2023-05-10 07:20 | EKG12_ITS ---
Test Reason : PRE OP Blood Pressure : / mmHG Vent. Rate : 062 BPM Atrial Rate : 062 BPM P-R Int : 196 ms QRS Dur : 096 ms QT Int : 402 ms P-R-T Axes : 055 029 043 degrees QTc Int : 408 ms Normal sinus rhythm Normal ECG Confirmed by FRANKLIN ALVAREZ, TODD ([id number]), communications editor LUZ AZUL ([id number]) on 05/11/2023 9:02:15 AM Referred By: Nilson Joya Confirmed By:MAGALI REID MD
[2023-05-10 08:34] LABS: Absolute Lymphocyte Count 0.97 X10^3/uL (0.83-4.51); Absolute Neutrophil Count 3.2 X10^3/uL (2.0-7.7); Basophil# 0.04 X10^3/uL; Basophil% 0.8 % (0-1); Eosinophil# 0.14 X10^3/uL; Eosinophils% 2.9 % (0-5); Hematocrit 45.9 % (40-54); Lymphocyte # 0.97 X10^3/ul (0.83-4.51); Lymphocyte % 20.3 % (19-41); Mean Corp Hgb Conc 32.7 g/dL (32-36); Mean Corpuscular Hgb 29.8 pg (27.0-32.0); Mean Corpuscular Volume 91.1 fL (80-94); Mean Platelet Vol. 8.7 fl (6.2-12.0); Monocyte# 0.36 X10^3/uL; Monocyte% 7.5 % (0-10); NRBC Flagged by Analyzer 0 % (0-5); Neutrophil # 3.24 X10^3/uL (2.7-7.7); Neutrophil % 67.9 % (47-70); Platelet Count 181 K/mm3 (150-450); RBC Distribution Width CV 13.2 % (11.6-14.6); Red Blood Count 5.04 M/mm3 (4.6-6.2); White Blood Count 4.8 K/mm3 (4.4-11.0)
[2023-05-10 08:41] LABS: Anion Gap 4 (5-15); BUN 23 mg/dL (7-18); BUN/Creat Ratio 16.7 RATIO (10-20); Calcium,Total 9.6 mg/dL (8.5-10.1); Chloride 107 mmol/L (98-107); Creatinine, Serum 1.38 mg/dL (0.70-1.30); EST Glomerular Filtration Rate 54 mL/min (>60); Est Glom Filt Rate - Afr Amer 66 mL/min (>60); Glucose 126 mg/dL (74-106); Potassium 4.7 mmol/L (3.5-5.1); Sodium Level 139 mmol/L (136-145)
[2023-05-10 08:47] LABS: Hemoglobin A1c 6.3 % (3.8-5.6)
== END | disposition home or self-care (01) ==
PROVIDERS: PCP Family Medicine; Referring Provider Orthopaedic Surgery; Visit Provider Orthopaedic Surgery
DX: Z01.818 Encounter for other preprocedural examination (principal); Z01.810 Encounter for preprocedural cardiovascular examination
CPT/HCPCS: 36415; 80048; 83036; 85025; 93005

== ENCOUNTER → 2023-07-29 | Outpatient (CLI) | payer MEDICARE, SELFPAY ==
--- NOTE | 2023-07-29 07:42 | CDU_ITS ---
Reason For Study: Stenosis Rt. Velocities/BP Lt. Velocities/BP Prox CCA 82.5/8.8 cm/sec. Prox CCA 87.2/9.7 cm/sec. Mid CCA 103.5/12.6 cm/sec. Mid CCA 74/9.7 cm/sec. Dist CCA 118.2/11.4 cm/sec. Dist CCA 70.2/10.7 cm/sec. Prox ICA 72.8/12.6 cm/sec. Prox ICA 41.9/10.7 cm/sec. Mid ICA 63/16.3 cm/sec. Mid ICA 70.2/17.3 cm/sec. Dist ICA 57.5/14.6 cm/sec. Dist ICA 64.5/18.2 cm/sec. Rt. ICA/CCA = 0.70. Lt. ICA/CCA = 0.95. Prox ECA 86.3/5.3 cm/sec. Prox ECA 119.5/6.5 cm/sec. Rt. Vert. 41.9/10.7 cm/sec. Lt. Vert. 42.8/9.7 cm/sec. Right Extracranial There is homogeneous, smooth atherosclerotic plaque noted in the right common carotid artery. There is homogeneous, smooth atherosclerotic plaque noted in the right internal carotid artery. There is intimal thickening but no significant atherosclerotic plaque noted in the right external carotid artery. Antegrade flow is noted in the right vertebral artery. Left Extracranial There is homogeneous, smooth atherosclerotic plaque noted in the left common carotid artery. There is homogeneous, smooth atherosclerotic plaque noted in the left internal carotid artery. There is heterogeneous, irregular atherosclerotic plaque noted in the left external carotid artery. Antegrade flow is noted in the left vertebral artery. Procedure Carotid Duplex 19270. This is a Carotid Duplex examination using B-mode, color flow and specral Doppler. Exam performed in department. VL/Carotid Duplex Ultrasound Interpretation Summary Widely patent postoperative changes of the right carotid bulb and proximal inte rnal carotid artery with less than 50% stenosis Less than 50% stenosis right external carotid artery Smooth plaque at the proximal left internal carotid artery with less than 50% s tenosis Less than 50% stenosis left external carotid artery Patent and antegrade vertebral arteries bilaterally. Ordering Physician: Talib Ferrara Referring Physician: Talib Ferrara Performed By: Eri Wade RVT
== END | disposition home or self-care (01) ==
LOC: CVS 07:41
PROVIDERS: PCP Family Medicine; Referring Provider Family Medicine; Visit Provider Family Medicine
DX: I65.23 Occlusion and stenosis of bilateral carotid arteries (principal); R42 Dizziness and giddiness
CPT/HCPCS: 93880

== ENCOUNTER → 2023-08-20 | Outpatient (CLI) | payer MEDICARE, SELFPAY ==
--- NOTE | 2023-08-20 10:20 | RAD_ITS ---
STUDY: X-RAY - RIGHT WRIST REASON FOR EXAM: Male, 68 years old. PAIN AFTER FALL TECHNIQUE: 4 view(s) of the wrist were obtained. COMPARISON: None. FINDINGS: Normal visualized distal radius and ulna. Normal radiocarpal articulation. Normal distal radioulnar articulation. Normal carpal bones. Normal carpal articulations. Normal carpometacarpal articulation of the thumb. Normal second through fifth carpometacarpal articulations. Normal visualized metacarpal bones. The soft tissue structures are unremarkable. RAD/Wrist min 3 Views IMPRESSION: No evidence of acute fracture or dislocation. Electronically Signed: Isael Markham DO at 18:23 EDT ,
== END | disposition home or self-care (01) ==
PROVIDERS: PCP Family Medicine; Referring Provider Family Medicine; Visit Provider Family Medicine
DX: M25.532 Pain in left wrist (principal); E11.29 Type 2 diabetes mellitus with other diabetic kidney complication; E11.22 Type 2 diabetes mellitus with diabetic chronic kidney disease; N18.31 Chronic kidney disease, stage 3a; I25.10 Atherosclerotic heart disease of native coronary artery without angina pectoris; I12.9 Hypertensive chronic kidney disease with stage 1 through stage 4 chronic kidney disease, or unspecified chronic kidney disease; E78.5 Hyperlipidemia, unspecified; Z12.5 Encounter for screening for malignant neoplasm of prostate
CPT/HCPCS: 73110

== ENCOUNTER → 2023-08-23 | Outpatient (CLI) | payer MEDICARE, SELFPAY ==
[2023-08-23 10:35] LABS: Absolute Lymphocyte Count 1.27 X10^3/uL (0.83-4.51); Absolute Neutrophil Count 3.3 X10^3/uL (2.0-7.7); Basophil# 0.06 X10^3/uL; Basophil% 1.2 % (0-1); Eosinophil# 0.16 X10^3/uL; Eosinophils% 3.1 % (0-5); Hematocrit 41.1 % (40-54); Hemoglobin 13.1 g/dL (13.0-16.5); Lymphocyte # 1.27 X10^3/ul (0.83-4.51); Lymphocyte % 24.4 % (19-41); Mean Corp Hgb Conc 31.9 g/dL (32-36); Mean Corpuscular Hgb 28.3 pg (27.0-32.0); Mean Corpuscular Volume 88.8 fL (80-94); Mean Platelet Vol. 8.9 fl (6.2-12.0); Monocyte# 0.37 X10^3/uL; Monocyte% 7.1 % (0-10); NRBC Flagged by Analyzer 0 % (0-5); Neutrophil # 3.33 X10^3/uL (2.7-7.7); Neutrophil % 63.8 % (47-70); Platelet Count 191 K/mm3 (150-450); RBC Distribution Width CV 13.8 % (11.6-14.6); RBC Distribution Width SD 44.5 fl (35.1-43.9); Red Blood Count 4.63 M/mm3 (4.6-6.2); White Blood Count 5.2 K/mm3 (4.4-11.0)
[2023-08-23 10:48] LABS: Hemoglobin A1c 6.2 % (3.8-5.6)
[2023-08-23 11:18] LABS: ALB/GLOB Ratio 1.1 RATIO (0.9-2.4); AST(SGOT) 31 U/L (15-37); Alanine Aminotransfer ALT/SGPT 36 U/L (16-61); Albumin, Serum 3.5 g/dL (3.2-5.0); Alkaline Phosphatase 76 U/L (45-117); Anion Gap 7 (5-15); BUN 26 mg/dL (7-18); BUN/Creat Ratio 21.7 RATIO (10-20); Calcium,Total 9.1 mg/dL (8.5-10.1); Chloride 109 mmol/L (98-107); Cholesterol 156 mg/dL (200); EST Glomerular Filtration Rate 64 mL/min (>60); Est Glom Filt Rate - Afr Amer 77 mL/min (>60); Globulin 3.3 g/dL (2.2-4.2); Glucose 98 mg/dL (74-106); High Density Lipoprotein 53 mg/dL; PSA,Total - Annual Screen 3.08 ng/mL (0.00-4.00); Potassium 4.4 mmol/L (3.5-5.1); Protein, Total 6.8 g/dL (6.4-8.2); Sodium Level 140 mmol/L (136-145); Triglycerides 121 mg/dL; Very Low Density Lipoprotein 24 mg/dL (5-40)
[2023-08-23 11:53] LABS: Microalbumin,Random Urine < 5.0 mg/L (NO RANGE EST.)
== END | disposition home or self-care (01) ==
PROVIDERS: PCP Family Medicine; Referring Provider Family Medicine; Visit Provider Family Medicine
DX: E11.29 Type 2 diabetes mellitus with other diabetic kidney complication (principal); E11.22 Type 2 diabetes mellitus with diabetic chronic kidney disease; N18.31 Chronic kidney disease, stage 3a; I25.10 Atherosclerotic heart disease of native coronary artery without angina pectoris; I12.9 Hypertensive chronic kidney disease with stage 1 through stage 4 chronic kidney disease, or unspecified chronic kidney disease; E78.5 Hyperlipidemia, unspecified; Z12.5 Encounter for screening for malignant neoplasm of prostate
CPT/HCPCS: 36415; 80053; 80061; 82043; 82570; 83036; 84153; 85025; G0103

== ENCOUNTER → 2023-11-02 | Outpatient (CLI) | payer MEDICARE, SELFPAY ==
[2023-11-02 17:37] LABS: Absolute Lymphocyte Count 1.37 X10^3/uL (0.83-4.51); Absolute Neutrophil Count 4.7 X10^3/uL (2.0-7.7); Basophil# 0.05 X10^3/uL; Basophil% 0.7 % (0-1); Eosinophil# 0.22 X10^3/uL; Eosinophils% 3.2 % (0-5); Hematocrit 43.1 % (40-54); Hemoglobin 13.8 g/dL (13.0-16.5); Lymphocyte # 1.37 X10^3/ul (0.83-4.51); Mean Corpuscular Hgb 27.1 pg (27.0-32.0); Mean Corpuscular Volume 84.7 fL (80-94); Mean Platelet Vol. 8.5 fl (6.2-12.0); Monocyte# 0.47 X10^3/uL; Monocyte% 6.9 % (0-10); NRBC Flagged by Analyzer 0 % (0-5); Neutrophil % 68.8 % (47-70); Platelet Count 239 K/mm3 (150-450); RBC Distribution Width CV 14.7 % (11.6-14.6); RBC Distribution Width SD 44.7 fl (35.1-43.9); Red Blood Count 5.09 M/mm3 (4.6-6.2); White Blood Count 6.8 K/mm3 (4.4-11.0)
[2023-11-02 17:53] LABS: Erythrocyte Sedimentation Rate 6 mm/hr (0-20)
[2023-11-02 18:20] LABS: CRP < 2.90 mg/L (0.0-3.0)
== END | disposition home or self-care (01) ==
LOC: MTLAB 15:24
PROVIDERS: PCP Family Medicine; Referring Provider Orthopaedic Surgery; Visit Provider Orthopaedic Surgery
DX: Z96.641 Presence of right artificial hip joint (principal)
CPT/HCPCS: 36415; 85025; 85652; 86140

== ENCOUNTER → 2023-11-12 | Outpatient (CLI) | payer MEDICARE, SELFPAY ==
--- NOTE | 2023-11-12 08:03 | CT_ITS ---
CT BILATERAL PELVIS, HIPS, AND KNEES WITH 3-D IMAGING CLINICAL INDICATION: Right hip pain. Presence of right artificial hip. TECHNIQUE: Axial CT images of the bilateral pelvis, hips, and knees was performed without IV contrast material. Coronal and sagittal reformats were provided. RADIATION DOSAGE (If Supplied By Facility): CTDIvol = ( 11.48 ) mGy, DLP = ( 832.18 ) mGycm COMPARISON: Pelvis and right hip radiographs dated 01/15/2023. FINDINGS: Bones: There is a right hip arthroplasty in place, without a periprosthetic fracture. Normal left hip joint. There is mild pubic symphysis arthrosis. Normal bilateral knees. Osseous structures are normal without evidence of fracture or dislocation. No lytic or blastic osseous masses. Soft Tissues: There are small bilateral knee joint effusions. The deep soft tissue structures are unremarkable. The superficial soft tissues are unremarkable without evidence of edema, hematoma, or foreign body. CT/Extremity Lower without Contra IMPRESSION: Right hip arthroplasty, with no periprosthetic fracture. Mild pubic symphysis arthrosis. Small bilateral knee joint effusions. Electronically Signed: Khris Holm MD at 14:47 EST ,
== END | disposition home or self-care (01) ==
PROVIDERS: PCP Family Medicine; Referring Provider Orthopaedic Surgery; Visit Provider Orthopaedic Surgery
DX: Z96.641 Presence of right artificial hip joint (principal)
CPT/HCPCS: 73700

== ENCOUNTER → 2023-12-09 | Outpatient (CLI) | payer MEDICARE, SELFPAY ==
[2023-12-09 14:36] LABS: Hemoglobin A1c 6.3 % (3.8-5.6)
== END | disposition home or self-care (01) ==
PROVIDERS: PCP Family Medicine; Referring Provider Student in an Organized Health Care Education/Training Program; Visit Provider Student in an Organized Health Care Education/Training Program
DX: Z01.818 Encounter for other preprocedural examination (principal); E11.9 Type 2 diabetes mellitus without complications
CPT/HCPCS: 36415; 83036

== ENCOUNTER → 2024-08-03 | Outpatient (CLI) | payer MEDICARE, SELFPAY ==
[2024-08-03 12:14] LABS: Absolute Lymphocyte Count 0.86 X10^3/uL (0.83-4.51); Absolute Neutrophil Count 4.8 X10^3/uL (2.0-7.7); Basophil# 0.03 X10^3/uL; Basophil% 0.5 % (0-1); Eosinophil# 0.24 X10^3/uL; Eosinophils% 3.7 % (0-5); Hematocrit 42.2 % (40-54); Hemoglobin 13.6 g/dL (13.0-16.5); Lymphocyte # 0.86 X10^3/ul (0.83-4.51); Lymphocyte % 13.4 % (19-41); Mean Corp Hgb Conc 32.2 g/dL (32-36); Mean Corpuscular Hgb 28.2 pg (27.0-32.0); Mean Corpuscular Volume 87.6 fL (80-94); Monocyte# 0.47 X10^3/uL; Monocyte% 7.3 % (0-10); NRBC Flagged by Analyzer 0 % (0-5); Neutrophil # 4.81 X10^3/uL (2.7-7.7); Neutrophil % 74.6 % (47-70); Platelet Count 166 K/mm3 (150-450); RBC Distribution Width CV 15.2 % (11.6-14.6); RBC Distribution Width SD 48.2 fl (35.1-43.9); Red Blood Count 4.82 M/mm3 (4.6-6.2); White Blood Count 6.4 K/mm3 (4.4-11.0)
[2024-08-03 12:54] LABS: ALB/GLOB Ratio 1.1 RATIO (0.9-2.4); AST(SGOT) 32 U/L (15-37); Alanine Aminotransfer ALT/SGPT 41 U/L (16-61); Albumin, Serum 3.6 g/dL (3.2-5.0); Alkaline Phosphatase 71 U/L (45-117); Anion Gap 6 (5-15); BUN 28 mg/dL (7-18); BUN/Creat Ratio 18.2 RATIO (10-20); Calcium,Total 9.7 mg/dL (8.5-10.1); Chloride 109 mmol/L (98-107); Cholesterol 158 mg/dL (200); Creatinine, Serum 1.54 mg/dL (0.70-1.30); EST Glomerular Filtration Rate 48 mL/min (>60); Est Glom Filt Rate - Afr Amer 58 mL/min (>60); Globulin 3.2 g/dL (2.2-4.2); Glucose 177 mg/dL (74-106); High Density Lipoprotein 54 mg/dL; Potassium 4.4 mmol/L (3.5-5.1); Protein, Total 6.8 g/dL (6.4-8.2); Sodium Level 138 mmol/L (136-145); Triglycerides 152 mg/dL; Very Low Density Lipoprotein 30 mg/dL (5-40)
[2024-08-03 13:01] LABS: Microalbumin,Random Urine < 5.0 mg/L (NO RANGE EST.)
== END | disposition home or self-care (01) ==
LOC: BFHLAB 10:16
PROVIDERS: PCP Family Medicine; Referring Provider Family Medicine; Visit Provider Family Medicine
DX: I12.9 Hypertensive chronic kidney disease with stage 1 through stage 4 chronic kidney disease, or unspecified chronic kidney disease (principal); E11.22 Type 2 diabetes mellitus with diabetic chronic kidney disease; E11.29 Type 2 diabetes mellitus with other diabetic kidney complication; N18.31 Chronic kidney disease, stage 3a; E78.5 Hyperlipidemia, unspecified
CPT/HCPCS: 36415; 80053; 80061; 82043; 82570; 83036; 85025

== ENCOUNTER → 2024-11-09 | Outpatient (CLI) | payer MEDICARE, SELFPAY | END | disposition home or self-care (01) | LOC: BFHLAB 13:24 → LABSPEC 13:26 | PROVIDERS: PCP Family Medicine; Referring Provider Family Medicine; Visit Provider Family Medicine | DX: L02.414 Cutaneous abscess of left upper limb (principal) | CPT/HCPCS: 87070; 87077; 87186; 87205 ==

== ENCOUNTER → 2025-03-19 | Outpatient (CLI) | payer MEDICARE, SELFPAY ==
[2025-03-19 11:39] LABS: Hemoglobin A1c 6.1 % (<=5.6)
[2025-03-19 11:42] LABS: Microalbumin,Random Urine < 12.0 mg/L (NO RANGE EST.); Microalbumin:Creatinine Ratio UNABLE TO CALCULATE mg/g CRE
[2025-03-19 11:45] LABS: Anion Gap 11 (5-15); BUN 39 mg/dL (4-19); Calcium,Total 9.9 mg/dL (7.6-11.0); Carbon Dioxide 24.1 mmol/L (21.0-32.0); Chloride 105 mmol/L (98-108); Creatinine, Serum 1.45 mg/dL (0.70-1.20); EST Glomerular Filtration Rate 52 (>60); Glucose 119 mg/dL (70-99); Potassium 4.7 mmol/L (3.3-5.1); Sodium Level 140 mmol/L (133-145)
== END | disposition home or self-care (01) ==
LOC: MTLAB 07:05
PROVIDERS: PCP Family Medicine; Referring Provider Internal Medicine Cardiovascular Disease; Visit Provider Internal Medicine Cardiovascular Disease
DX: I65.21 Occlusion and stenosis of right carotid artery (principal); E11.9 Type 2 diabetes mellitus without complications; I10 Essential (primary) hypertension; Z95.5 Presence of coronary angioplasty implant and graft
CPT/HCPCS: 36415; 80048; 82043; 82570; 83036

== ENCOUNTER → 2025-03-20 | Outpatient (CLI) | payer MEDICARE, SELFPAY ==
--- NOTE | 2025-03-20 09:30 | CYSPIN_PTH ---
PATIENT: CECELIA BENZ LOC: [facility] U#:[id number] AGE/SX: 69/M ROOM: RE03/20/[address]: Dr. Ze Saab MD : 1955 BED: DIS: 03/20/2025 SPEC #: [id number] RECD: 03/21/25 08:22 STATUS: NOE REEdinson #: [id number] LETA: 03/20/25 09:[address]: Ze Saab DEPT: CYTOLOGY RECD BY: Felicity Mullins ENTERED: 03/21/25 08:24 SP TYPE: CYSPIN FL OTHR DR: Dr. Talib Ferrara, DO Tissues: Urine Procedures: Pap Stain (control) Special Stain Group II Cytospin Fluid HEADER OPERATION: Not noted PRE-OP DIAGNOSIS: Malignant neoplasm of posterior wall of bladder TISSUE SUBMITTED: A- Urine for cytology - voided DIAGNOSIS CYTOLOGY A. Urine, voided: * No malignant cells are identified CYTOLOGY STUDY Slides are reviewed. CYTOLOGY GROSS A. Received is 80 ml of yellow-cloudy fluid labeled with the patient's name and and designated per the requisition as urine. Submitted for cytology preparation. 03/21/2025 CPT: 51376
[2025-03-20 11:55] LABS: PSA,Total - Annual Screen 2.37 ng/mL (0.02-4.00)
[2025-03-20 16:25] LABS: Cytology, Body Fluid / CSF SEE PATHOLOGY REPORT
== END | disposition home or self-care (01) ==
PROVIDERS: PCP Family Medicine; Referring Provider Urology; Visit Provider Urology
DX: Z12.5 Encounter for screening for malignant neoplasm of prostate (principal); C67.4 Malignant neoplasm of posterior wall of bladder
CPT/HCPCS: 36415; 84153; 88108; 88313; G0103

== ENCOUNTER → 2025-04-09 | Outpatient (CLI) | payer MEDICARE, SELFPAY ==
--- NOTE | 2025-04-09 16:16 | STRESSREP ---
Stress Test Report Exercise myocardial perfusion stress test. 70-year-old male with a history of multivessel coronary disease and diabetes Stress protocol: Resting EKG demonstrates sinus bradycardia with a rate of 59 bpm resting blood pressure is 152/74 mmHg. The patient exercised according to the regular Polo protocol for a total duration of 7 minutes and 11 seconds attaining a maximum heart rate of 116 bpm which was 78% of maximum predicted heart rate; the maximum workload was 10.1 metabolic equivalents. Patient was kept on his medications. At rest there were no ST or T wave changes noted to suggest ischemia and at peak exercise upsloping ST changes only were noted which did not meet the criteria for ischemia. No clinical angina was noted the test was terminated due to the target heart rate being achieved/fatigue. The peak blood pressure was 192/72 mmHg. Rate-pressure product was 17,000. Myocardial perfusion protocol. 14.1 mCi of technetium 99m sestamibi was injected at rest. The patient exercised according to regular Polo protocol for total duration of 7 minutes and 11 seconds and at peak exercise 44.3 mCi of technetium 99m sestamibi was injected stress images were obtained stress and rest images were reconstructed in comparing the short axis vertical long and horizontal long axis. Gated images were also obtained. Perfusion SPECT analysis: Review of the stress images demonstrate normal uptake of tracer noted in all areas of the myocardium. There was mildly reduced perfusion in the mid anterior wall. The resting images similarly demonstrate normal uptake of tracer noted in all areas of the myocardium except for the mid anterior wall with mildly reduced perfusion. Previous area of infarct in this area cannot be completely excluded. Gated SPECT analysis: The gated ejection fraction is 61%. Conclusion: Normal exercise myocardial perfusion stress test at a high workload Preserved ejection fraction.
== END | disposition home or self-care (01) ==
LOC: CVS 06:01
PROVIDERS: PCP Family Medicine; Referring Provider Internal Medicine Cardiovascular Disease; Visit Provider Internal Medicine Cardiovascular Disease
DX: I25.10 Atherosclerotic heart disease of native coronary artery without angina pectoris (principal); I65.21 Occlusion and stenosis of right carotid artery; Z95.5 Presence of coronary angioplasty implant and graft
CPT/HCPCS: 78452; 93017; A9500; A4216

== ENCOUNTER → 2025-08-10 | Outpatient (CLI) | payer MEDICARE, SELFPAY ==
[2025-08-10 10:28] LABS: Hematocrit 36.7 % (40-54); Hemoglobin 12.0 g/dL (13.0-16.5); Immature Granulocytes Count 0.020 X10^3/uL (0.0-0.0); Mean Corp Hgb Conc 32.7 g/dL (32-36); Mean Corpuscular Volume 86.8 fL (80-94); Mean Platelet Vol. 9.3 fl (6.2-12.0); NRBC Flagged by Analyzer 0 % (0-5); Platelet Count 172 K/mm3 (150-450); RBC Distribution Width CV 14.7 % (11.6-14.6); RBC Distribution Width SD 46.6 fl (35.1-43.9); Red Blood Count 4.23 M/mm3 (4.6-6.2); White Blood Count 4.4 K/mm3 (4.4-11.0)
[2025-08-10 10:35] LABS: Color, Urine Yellow (Yellow); Glucose, Dipstick 1000 mg/dl (Normal); Ketone-Dipstick Negative (Negative); Leukocyte Esterase-Dipstick Negative /ul (Negative); Nitrite-Dipstick Negative (Negative); Occult Blood-Urine Negative /ul (Negative); Protein-Dipstick Negative (Negative); Specific Gravity, Urine 1.010 (1.002-1.030); Urine Bilirubin Dipstick Negative (Negative)
[2025-08-10 10:46] LABS: AST(SGOT) 34 U/L (<=37); Alanine Aminotransfer ALT/SGPT 26 U/L (<=46); Albumin, Serum 4.1 g/dL (3.4-4.8); Alkaline Phosphatase 59 U/L (40-129); Anion Gap 11 (5-15); BUN 23 mg/dL (4-19); BUN/Creat Ratio 15.6 RATIO (10-20); Calcium,Total 9.1 mg/dL (7.6-11.0); Carbon Dioxide 22.9 mmol/L (21.0-32.0); Chloride 105 mmol/L (98-108); Cholesterol 151 mg/dL (<=200); Globulin 2.3 g/dL (2.2-4.2); Glucose 102 mg/dL (70-99); Low Density Lipoprotein Calc. 82 mg/dL; Potassium 4.3 mmol/L (3.3-5.1); Triglycerides 85 mg/dL; Very Low Density Lipoprotein 17 mg/dL (5-40); cholesterol:hdl ratio screen 2.90
== END | disposition home or self-care (01) ==
LOC: MTLAB 08:08
PROVIDERS: PCP Family Medicine; Referring Provider Family Medicine; Visit Provider Family Medicine
DX: E11.29 Type 2 diabetes mellitus with other diabetic kidney complication (principal); I25.10 Atherosclerotic heart disease of native coronary artery without angina pectoris; I10 Essential (primary) hypertension; M54.9 Dorsalgia, unspecified
CPT/HCPCS: 36415; 80053; 80061; 81002; 85025

== ENCOUNTER → 2025-08-22 | Outpatient (CLI) | payer MEDICARE, SELFPAY ==
--- NOTE | 2025-08-22 14:46 | CT_ITS ---
PROCEDURE: ABDOMEN/PELVIS WITH CONTRAST 08/22/2025 REASON FOR EXAM: ABD PAIN/DORSALGIA TECHNIQUE: Procedure Code: [id number] Modality: CT Procedure: ABDOMEN/PELVIS WITH CONTRAST Coronal and Sagittal reconstruction series were provided. CONTRAST: Isovue 370 VOLUME: 100 mL One or more dose reduction techniques were used (e.g., Automated exposure control, adjustment of the mA and/or kV according to patient size, use of iterative reconstruction technique. RADIATION DOSE SUMMARY: CTDlvol: 58.51 mGy DLP: 2453.79 mGycm COMPARISON: None FINDINGS: Lung bases: Clear Liver: Diffuse fatty infiltration. Gallbladder: Surgically absent. Spleen: Normal size. Pancreas: Normal size without evidence of mass surrounding inflammation or ductal dilation. Adrenals: Unremarkable Kidneys: No obstructive uropathy or suspicious solid renal lesion Bladder: Unremarkable Reproductive Organs: No suspicious pelvic mass Bowel: Nondistended fluid-filled small bowel loops consistent with ileus likely due to retained stool throughout the entirety of the colon. There are some scattered colonic diverticula without CT evidence of acute diverticulitis. Appendix: Not visualized Lymph nodes: No suspicious mesenteric or retroperitoneal adenopathy Vasculature: Mild diffuse atherosclerotic calcifications are noted. Peritoneum / Retroperitoneum: No free fluid or air Bones: Degenerative bony changes, the replaced right hip joint is free of complication CT/Abdomen/Pelvis WITH Contrast IMPRESSION: No suspicious solid organ abnormality, fatty infiltration of the liver without a discrete lesion. No free intraperitoneal fluid, air, or suspicious adenopathy Small-bowel ileus likely due to retained stool throughout the colon Degenerative bony changes Reading Location: [id number]
== END | disposition home or self-care (01) ==
LOC: CT 14:42
PROVIDERS: PCP Family Medicine; Referring Provider Family Medicine; Visit Provider Family Medicine
DX: M54.9 Dorsalgia, unspecified (principal); R10.9 Unspecified abdominal pain
CPT/HCPCS: 74177; Q9967